=== PATIENT | male | born 1955 | race Caucasian/White ===

== ENCOUNTER 2016-12-15 08:22 | Emergency (ER) | payer MEDICAID ==
[2016-12-15] MEDS ORDERED: ASPIRIN 81 MG TABLET, CHEWABLE PO ONE (08:26)
[2016-12-15 09:19] LABS: ABSOLUTE EOSINOPHILS # (AUTO) 0.1 10^3/uL (0.0-0.6); ABSOLUTE LYMPHOCYTES (AUTO) 1.1 10^3/uL (0.5-4.7); ABSOLUTE NEUT (AUTO) 3.9 10^3/uL (1.7-8.2); WHITE BLOOD COUNT 5.7 10^3/uL (4.0-10.5)
--- NOTE | 2016-12-15 09:20 | EKG REPORT ---
SEVERITY:- ABNORMAL ECG - ATRIAL FIBRILLATION PROBABLE INFEROLATERAL INFARCT, AGE INDETERM : Confirmed by: Karishma Alcantar 15-Dec-2016 09:19:31
[2016-12-15 09:34] LABS: ABSOLUTE MONOCYTES (AUTO) 0.6 10^3/uL (0.1-1.4); BASOPHILS % (AUTO) 0.3 % (0-2); EOSINOPHILS % (AUTO) 2.6 % (0-6); HEMATOCRIT 50.6 % (37.9-51.0); HEMOGLOBIN 16.7 g/dL (13.5-17.0); HGB HCT DIFFERENCE -0.5; LYMPHOCYTES % (AUTO) 19.7 % (13-45); MEAN CORPUSCULAR HGB CONC 32.9 g/dL (32.0-36.0); MEAN CORPUSCULAR VOLUME 88 fl (80-97); MONOCYTES % (AUTO) 9.9 % (3-13); RED BLOOD COUNT 5.75 10^6/uL (4.35-5.55); RED CELL DISTRIBUTION WIDTH 14.9 % (11.5-14.0); SEGMENTED NEUTROPHILS % (AUTO) 67.5 % (42-78)
--- NOTE | 2016-12-15 10:05 | ER Document Report ---
ED General - General Chief Complaint: Palpitations Stated Complaint: HEART PROBLEMS Mode of Arrival: Ambulatory Information source: Patient Notes: 61-year-old male history of A. saran who is on bisoprolol 10mg presents with complaints of rapid heart rate. Patient notes he is unable to check it at home states it is faster intermittently. Patient denies any chest pain shortness of breath difficulty breathing when this occurs. Currently patient is asymptomatic TRAVEL OUTSIDE OF THE [place] IN LAST 30 DAYS: No - HPI Onset: Other Onset/Duration: Intermittent Quality of pain: No pain Severity: Mild Pain Level: Denies Associated symptoms: Other Exacerbated by: Walking Relieved by: Denies Similar symptoms previously: Yes Recently seen / treated by doctor: Yes - Related Data Allergies/Adverse Reactions: cefuroxime axetil [From Ceftin] Allergy (Intermediate, Verified 12/15/16 08:35) Past Medical History - Social History Smoking Status: Former Smoker Cigarette use (# per day): No Chew tobacco use (# tins/day): No Smoking Education Provided: No Frequency of alcohol use: None Drug Abuse: None Family History: Reviewed & Not Pertinent Patient has suicidal ideation: No Patient has homicidal ideation: No - Past Medical History Cardiac Medical History: Reports: Hx Atrial Fibrillation, Hx Coronary Artery Disease, Hx Hypercholesterolemia, Hx Hypertension Pulmonary Medical History: Reports: Hx Bronchitis - 90's, Hx Pneumonia Denies: Hx Tuberculosis Renal/ Medical History: Denies: Hx Peritoneal Dialysis Psychiatric Medical History: Reports: Hx Depression - gen anxiety disorder Traumatic Medical History: Reports: Hx Fractures - skull 7 y/o Past Surgical History: Reports: Hx Cardiac Surgery - 2009,09/10/16, Hx CholecystectomyComment Only: Hx Vascular Surgery - stent neck - Immunizations Hx Diphtheria, Pertussis, Tetanus Vaccination: Yes Hx Pneumococcal Vaccination: 11/11/09 Review of Systems - Review of Systems Notes: REVIEW OF SYSTEMS: CONSTITUTIONAL : Denies fever, chills, or sweats. Denies recent illness. EENT: Denies eye, ear, throat, or mouth pain or symptoms. Denies nasal or sinus congestion or discharge. Denies throat, tongue, or mouth swelling or difficulty swallowing. CARDIOVASCULAR: Admits to racing or irregular heart RESPIRATORY: Denies cough, cold, or chest congestion. Denies shortness of breath, difficulty breathing, or wheezing. GASTROINTESTINAL: Denies abdominal pain or distention. Denies nausea, vomiting , or diarrhea. Denies blood in vomitus, stools, or per rectum. Denies black, tarry stools. Denies constipation. GENITOURINARY: Denies difficulty urinating, painful urination, burning, frequency, blood in urine, or discharge. MUSCULOSKELETAL: Denies back or neck pain or stiffness. Denies joint pain or swelling. SKIN: Denies rash, lesions or sores. HEMATOLOGIC : Denies easy bruising or bleeding. LYMPHATIC: Denies swollen, enlarged glands. NEUROLOGICAL: Denies confusion or altered mental status. Denies passing out or loss of consciousness. Denies dizziness or lightheadedness. Denies headache. Denies weakness or paralysis or loss of use of either side. Denies problems with gait or speech. Denies sensory loss, numbness, or tingling. Denies seizures. PSYCHIATRIC: Denies anxiety or stress. Denies depression, suicidal ideation, or homicidal ideation. ALL OTHER SYSTEMS REVIEWED AND NEGATIVE. Dictation was performed using [employer] voice recognition software PHYSICAL EXAMINATION: GENERAL: Well-appearing, well-nourished and in no acute distress. HEAD: Atraumatic, normocephalic. EYES: Pupils equal round and reactive to light, extraocular movements intact, sclera anicteric, conjunctiva are normal. ENT: Nares patent, oropharynx clear without exudates. Moist mucous membranes. NECK: Normal range of motion, supple without lymphadenopathy LUNGS: Breath sounds clear to auscultation bilaterally and equal. No wheezes rales or rhonchi. HEART: A. fib rate in the 70s ABDOMEN: Soft, nontender, nondistended abdomen. No guarding, no rebound. No masses appreciated. Musculoskeletal: Normal range of motion, no pitting or edema. No cyanosis. NEUROLOGICAL: Cranial nerves grossly intact. Normal speech, normal gait. Normal sensory, motor exams PSYCH: Normal mood, normal affect. SKIN: Warm, Dry, normal turgor, no rashes or lesions noted. Physical Exam - Vital signs Vitals: Temp Pulse Resp BP Pulse Ox 97.2 F 56 L 20 130/81 H 98 12/15/16 08:38 12/15/16 08:38 12/15/16 08:38 12/15/16 08:38 12/15/16 08:38 Course - Re-evaluation Re-evalutation: 12/15/16 10:06 Patient's rate controlled at this time, lab work is pending, I will speak with his allergy specialist regarding his concerns however I do not expect any life- threatening issues at this time 12/15/16 10:[address] maldonado, requests coumadin vs follow up with dr hartmann on saturday, pt wishes to start coumadin and will follow After performing a Medical Screening Examination, I estimate there is LOW risk for RUPTURED ESOPHAGUS, PNEUMOTHORAX, PULMONARY EMBOLISM, ACUTE CORONARY SYNDROME, OR THORACIC AORTIC DISSECTION, thus I consider the discharge disposition reasonable. The patient and I have discussed the diagnosis and risks , and we agree with discharging home with close follow-up. We also discussed returning to the Emergency Department immediately if new or worsening symptoms occur. We have discussed the symptoms which are most concerning (e.g., bloody sputum, worsening pain or shortness of breath) that necessitate immediate return. - Vital Signs Vital signs: Temp Pulse Resp BP Pulse Ox 97.2 F 56 L 20 130/81 H 98 12/15/16 08:38 12/15/16 08:38 12/15/16 08:38 12/15/16 08:38 12/15/16 08:38 - Laboratory Result Diagrams: 12/15/16 08:53 12/15/16 09:40 Laboratory results interpreted by me: 12/15/16 08:53 RBC 5.75 H RDW 14.9 H Plt Count 79 L Discharge - Discharge Clinical Impression: Atrial fibrillation Qualifiers: Atrial fibrillation type: chronic Qualified Code(s): I48.2 - Chronic atrial fibrillation Condition: Stable Disposition: HOME, SELF-CARE Instructions: Palpitations (Irregular or Rapid Heartrate) ([facility]) Prescriptions: Warfarin Sodium [Coumadin 5 mg Tablet] 5 mg PO QHS #30 tablet Referrals: SANDIE BLANCHARD MD [Primary Care Provider] - Follow up as needed DWAYNE KENNEY MD [ACTIVE STAFF] - Follow up tomorrow
[2016-12-15 10:13] LABS: ALANINE AMINOTRANSFERASE 25 U/L (21-72); ALBUMIN 3.7 g/dL (3.5-5.0); ALKALINE PHOSPHATASE 65 U/L (38-126); ANION GAP 9 (5-19); ASPARTATE AMINO TRANSFERASE 29 U/L (17-59); BILIRUBIN,TOTAL 1.1 mg/dL (0.2-1.3); BLOOD UREA NITROGEN 12 mg/dL (7-20); CALCIUM 9.4 mg/dL (8.4-10.2); CARBON DIOXIDE 28 mmol/L (22-30); CHLORIDE 104 mmol/L (98-107); CREATINE KINASE 68 U/L (55-170); CREATININE RESULT 1.07 mg/dL (0.52-1.25); GLUCOSE 95 mg/dL (75-110); POTASSIUM 4.6 mmol/L (3.6-5.0); SODIUM 140.7 mmol/L (137-145); TOTAL PROTEIN 7.2 g/dL (6.3-8.2)
[2016-12-15 10:25] LABS: CREATINE KINASE MB 1.22 ng/mL (<4.55)
[2016-12-15 10:26] LABS: TROPONIN I < 0.012 ng/mL
[2016-12-15 11:05] VITALS: BP 119/94
== END 2016-12-15 11:05 | disposition home or self-care (01) ==
LOC: ER 08:22
DX: I48.2 Chronic atrial fibrillation (principal); I25.10 Atherosclerotic heart disease of native coronary artery without angina pectoris; I10 Essential (primary) hypertension; Z79.899 Other long term (current) drug therapy; Z88.1 Allergy status to other antibiotic agents; Z87.891 Personal history of nicotine dependence
CPT/HCPCS: 36415; 71010; 80053; 82550; 82553; 84484; 85025; 93005; 93010; 99285

== ENCOUNTER → 2016-12-21 | Outpatient (CLI) | payer MEDICAID | LOC: SP 10:39 | PROVIDERS: ATTEND Internal Medicine Cardiovascular Disease | DX: R09.89 Other specified symptoms and signs involving the circulatory and respiratory systems (principal); Z98.61 Coronary angioplasty status | CPT/HCPCS: 93880 ==

== ENCOUNTER → 2018-01-06 | Outpatient (CLI) | payer MEDICAID ==
--- NOTE | 2018-01-06 16:04 | RADIOLOGY REPORT (SQ) ---
EXAM DESCRIPTION: CAROTID DOPPLER COMPLETED DATE/TIME: 01/06/2018 10:50 am REASON FOR STUDY: STENOSIS, DIZZINESS R42 DIZZINESS AND GIDDINESS I65.23 OCCLUSION AND STENOSIS OF BILATERAL CAROTID ARTERIES COMPARISON: CT angio neck 11/06/2012 Carotid Doppler 12/21/2016 TECHNIQUE: Grayscale ultrasound, Doppler velocity and spectra, and color Doppler images acquired of the extra-cranial carotid and vertebral arteries. Images stored on PACS. LIMITATIONS: None. FINDINGS: RIGHT CAROTID CCA Velocities: Within normal limits. ICA Velocities Peak systolic 0.52 m/s. End diastolic 0.16 m/s. Proximal ICA/CCA peak systolic ratio 1.5. Patient is post right carotid stenting. Normal velocities in the wound right ICA within the stent, a nd superior to the stent LEFT CAROTID CCA Velocities: Within normal limits. ICA Velocities Peak systolic 1.9 m/s. End diastolic 0.53 m/s. Proximal ICA/CCA peak systolic ratio 5.3. There is calcific shadowing plaque at the origin of the left ICA. Immediately distal to the shadowin g plaque, velocities suggest 70 to 99% stenosis. There is turbulent flow in the left ICA. VERTEBRAL ARTERIES: Antegrade flow. Normal waveforms. SUBCLAVIAN ARTERIES: Not evaluated OTHER: No other significant finding. IMPRESSION: Patent right carotid stent without recurrent right proximal ICA stenosis Calcific plaque left carotid bifurcation with elevated peak systolic and end-diastolic velocities jus t distal to the plaque, and suggesting 70 to 99% left proximal ICA stenosis. COMMENT: Quality ID #195: Velocity criteria are extrapolated from the diameter data as defined by lanette mejia Society of Radiologists in Ultrasound Consensus Conference. Radiology 2003: 229; 340-346. TECHNICAL DOCUMENTATION: JOB ID: [id number] [employer]- All Rights Reserved Reading location - IP/workstation name: [email or web address]
== END ==
LOC: SP 09:13
PROVIDERS: ATTEND Family Medicine
DX: I65.23 Occlusion and stenosis of bilateral carotid arteries (principal); R42 Dizziness and giddiness
CPT/HCPCS: 93880

== ENCOUNTER → 2018-01-20 | Outpatient (CLI) | payer MEDICAID ==
--- NOTE | 2018-01-20 16:29 | RADIOLOGY REPORT (SQ) ---
EXAM DESCRIPTION: CTA NECK COMPLETED DATE/TIME: 01/20/2018 2:40 pm REASON FOR STUDY: I65.23 OCCLUSION AND STENOSIS OF BILATERAL CAROTID ARTERIES I65.23 OCCLUSION AND STENOSIS OF BILATERAL CAROTID ARTERIES COMPARISON: Carotid Doppler dated 01/06/2018. TECHNIQUE: Axial dynamic scanning technique with dynamic contrast enhancement through the extra-aircraft engine mechanic overhaul nial carotid and vertebral arteries. Multiplanar reconstruction. 3-D MIPS and Volume-rendered imag es acquired at the workstation and saved to PACS. Images are reviewed in soft tissue, bone, lung w indows. All CT scanners at this facility use dose modulation, iterative reconstruction, and/or weight based d osing when appropriate to reduce radiation dose to as low as reasonably achievable (ALARA). [facility]: Dose Right [facility]: CareDose [facility]: Dose Right [facility]: Teradose 4D [facility]: 5k Fans CONTRAST TYPE AND DOSE: contrast/concentration: Isovue 370.00 mg/ml; Total Contrast Delivered: 80.0 ml; Total Saline Delivered: 75.0 ml RENAL FUNCTION: Creatinine 1.2. LIMITATIONS: None. FINDINGS: AORTIC ARCH: Normal three-vessel origin. Bilateral subclavian arteries are patent. No d issection. RIGHT CAROTIDS: Patent common, internal and external carotid arteries without suggestion of significa nt stenosis or irregular plaque. Patent stent in the carotid bulb and proximal internal carotid tk ry. No dissection. RIGHT VERTEBRAL: Patent. No dissection. LEFT CAROTIDS: Patent common and external carotid arteries. Heavily calcified plaque in the carotid bulb and proximal internal carotid artery with approximately 90% luminal narrowing. No dissection. LEFT VERTEBRAL: Patent. No dissection. OTHER: No other significant finding. OTHER: 3-D reconstructions confirm findings. IMPRESSION: 1. CALCIFIED PLAQUE IN THE LEFT CAROTID BULB AND PROXIMAL LEFT INTERNAL CAROTID ARTERY WITH APPROXIMA TELY 90% STENOSIS. 2. PATENT STENT IN THE RIGHT CAROTID BULB AND PROXIMAL INTERNAL CAROTID ARTERY. COMMENT: Quality ID #195: Measurements of distal internal carotid diameter were used as the denomina tor for stenosis measurement. TECHNICAL DOCUMENTATION: JOB ID: [id number] Quality ID # 436: Final reports with documentation of one or more dose reduction techniques (e.g., Au tomated exposure control, adjustment of the mA and/or kV according to patient size, use of iterative reconstruction technique) 2010 [employer]- All Rights Reserved Reading location - IP/workstation name: [email or web address]
== END ==
LOC: RAD 14:33
PROVIDERS: ATTEND Physician Assistant Medical
DX: I65.23 Occlusion and stenosis of bilateral carotid arteries (principal)
CPT/HCPCS: 70498; 82565

== ENCOUNTER 2019-09-11 09:47 | Emergency (ER) | payer MEDICARE, MEDICAID ==
--- NOTE | 2019-09-11 10:14 | ER Document Report ---
ED Medical Screen (RME) - General Chief Complaint: Abdominal Pain Stated Complaint: ABDOMINAL PAIN Time Seen by Provider: 09/11/19 10:08 Primary Care Provider: VENKAT CASIANO PA-C [Primary Care Provider] - Follow up as needed Mode of Arrival: Ambulatory Information source: Patient Notes: 64-year-old male presents to ED for complaint of left lower quadrant abdominal p ain x3 weeks. He denies any nausea vomiting or diarrhea. He states he felt like he had a fever but his temperature was normal when he came in. Patient states he feels a little nauseous but mostly gassy. He states the pain is sharp at times and dull at times. Patient states the pain is a 1.5/5. Patient states he is a former smoker 30 years ago alcohol once a week no illicit drugs. He has a history of ITP high blood pressure high cholesterol heart disease he has a couple stents in his heart and one in his neck carotid endarterectomy on the left side right inguinal hernia repair. He states he often feels woozy and shaky and he thought he had diabetes he went to Dr. Salazar he said he does not have diabetes. I have greeted and performed a rapid initial assessment of this patient. A comprehensive ED assessment and evaluation of the patient, analysis of test results and completion of medical decision making process will be conducted by an additional ED providers. TRAVEL OUTSIDE OF THE [place] IN LAST 30 DAYS: No - Related Data Allergies/Adverse Reactions: cefuroxime axetil [From Ceftin] Allergy (Intermediate, Verified 12/15/16 08:35) Past Medical History - Past Medical History Cardiac Medical History: Reports: Hx Atrial Fibrillation, Hx Coronary Artery Disease, Hx Hypercholesterolemia, Hx Hypertension Pulmonary Medical History: Reports: Hx Bronchitis - 90's, Hx Pneumonia Denies: Hx Tuberculosis Renal/ Medical History: Denies: Hx Peritoneal Dialysis Psychiatric Medical History: Reports: Hx Depression - gen anxiety disorder Traumatic Medical History: Reports: Hx Fractures - skull 7 y/o Past Surgical History: Reports: Hx Cardiac Surgery - 2009,09/10/16, Hx CholecystectomyComment Only: Hx Vascular Surgery - stent neck - Immunizations Hx Diphtheria, Pertussis, Tetanus Vaccination: Yes Physical Exam - Vital signs Vitals: Temp Pulse Resp BP Pulse Ox 97.4 F 71 18 148/56 H 99 09/11/19 09:51 09/11/19 09:51 09/11/19 09:51 09/11/19 09:51 09/11/19 09:51 Course - Vital Signs Vital signs: Temp Pulse Resp BP Pulse Ox 97.4 F 71 18 148/56 H 99 09/11/19 09:51 09/11/19 09:51 09/11/19 09:51 09/11/19 09:51 09/11/19 09:51 Doctor's Discharge - Discharge Referrals: VENKAT CASIANO PA-C [Primary Care Provider] - Follow up as needed
[2019-09-11] MEDS ORDERED: ONDANSETRON 4 MG TAB.RAPDIS PO ONE (10:15)
[2019-09-11 10:49] LABS: APPEARANCE,URINE CLEAR; BILIRUBIN,URINE NEGATIVE (NEGATIVE); COLOR,URINE YELLOW; GLUCOSE, URINE NEGATIVE (NEGATIVE); KETONES,URINE NEGATIVE (NEGATIVE); PROTEIN,URINE NEGATIVE (NEGATIVE); UROBILINOGEN,URINE NEGATIVE mg/dL (<2.0)
[2019-09-11 10:56] LABS: ABSOLUTE EOSINOPHILS # (AUTO) 0.1 10^3/uL (0.0-0.6); ABSOLUTE MONOCYTES (AUTO) 0.5 10^3/uL (0.1-1.4); ABSOLUTE NEUT (AUTO) 4.8 10^3/uL (1.7-8.2); BASOPHILS % (AUTO) 0.4 % (0-2); HEMATOCRIT 45.3 % (37.9-51.0); HEMOGLOBIN 15.3 g/dL (13.5-17.0); LYMPHOCYTES % (AUTO) 15.7 % (13-45); MEAN CORPUSCULAR HEMOGLOBIN 31.2 pg (27.0-33.4); MEAN CORPUSCULAR HGB CONC 33.8 g/dL (32.0-36.0); MEAN CORPUSCULAR VOLUME 93 fl (80-97); MONOCYTES % (AUTO) 7.6 % (3-13); RED CELL DISTRIBUTION WIDTH 12.9 % (11.5-14.0); SEGMENTED NEUTROPHILS % (AUTO) 74.3 % (42-78); TOTAL CELLS COUNTED % (AUTO) 100 %; WHITE BLOOD COUNT 6.5 10^3/uL (4.0-10.5)
[2019-09-11 11:08] LABS: ALBUMIN 4.4 g/dL (3.5-5.0); ALKALINE PHOSPHATASE 61 U/L (38-126); ANION GAP 8 (5-19); ASPARTATE AMINO TRANSFERASE 25 U/L (17-59); BILIRUBIN,DIRECT 0.1 mg/dL (0.0-0.4); BILIRUBIN,TOTAL 0.9 mg/dL (0.2-1.3); BLOOD UREA NITROGEN 18 mg/dL (7-20); CALCIUM 9.6 mg/dL (8.4-10.2); CARBON DIOXIDE 29 mmol/L (22-30); CHLORIDE 102 mmol/L (98-107); GLUCOSE 96 mg/dL (75-110); POTASSIUM 4.4 mmol/L (3.6-5.0); TOTAL PROTEIN 7.4 g/dL (6.3-8.2)
[2019-09-11 11:16] LABS: PLATELET COUNT 81 10^3/uL (150-450)
[2019-09-11] MEDS ORDERED: NORMAL SALINE 1000 ML 1,000 ML IV ONE (12:26)
--- NOTE | 2019-09-11 12:30 | ER Document Report ---
ED General - General Chief Complaint: Abdominal Pain Stated Complaint: ABDOMINAL PAIN Time Seen by Provider: 09/11/19 10:08 Primary Care Provider: VENKAT CASIANO PA-C [NO LOCAL MD] - Follow up in 3-5 days Mode of Arrival: Ambulatory Notes: Patient is a 64-year-old male who presents emergency department with a chief complaint of left lower abdominal pain. He has had his symptoms for the past 3 weeks. Patient states that he also had felt shaky prior to then. He had diabetes ruled out by his primary care provider. TRAVEL OUTSIDE OF THE [place] IN LAST 30 DAYS: No - Related Data Allergies/Adverse Reactions: cefuroxime axetil [From Ceftin] Allergy (Intermediate, Verified 12/15/16 08:35) Past Medical History - General Information source: Patient - Social History Smoking Status: Former Smoker Chew tobacco use (# tins/day): No Frequency of alcohol use: Occasional Drug Abuse: None Family History: Reviewed & Not Pertinent Patient has suicidal ideation: No Patient has homicidal ideation: No - Past Medical History Cardiac Medical History: Reports: Hx Atrial Fibrillation, Hx Coronary Artery Disease, Hx Hypercholesterolemia, Hx Hypertension Pulmonary Medical History: Reports: Hx Bronchitis - 90's, Hx Pneumonia Denies: Hx Tuberculosis Renal/ Medical History: Denies: Hx Peritoneal Dialysis Psychiatric Medical History: Reports: Hx Depression - gen anxiety disorder Traumatic Medical History: Reports: Hx Fractures - skull 7 y/o Past Surgical History: Reports: Hx Cardiac Surgery - 2009,09/10/16, Hx CholecystectomyComment Only: Hx Vascular Surgery - stent neck - Immunizations Hx Diphtheria, Pertussis, Tetanus Vaccination: Yes Hx Pneumococcal Vaccination: 11/11/09 Review of Systems - Review of Systems Notes: REVIEW OF SYSTEMS: CONSTITUTIONAL : Denies recent illness. Denies recent unintentional weight loss. Denies fever, chills, or sweats. EENT: Denies eye, ear, throat, or mouth pain, discharge, or symptoms. Denies nasal or sinus congestion. CARDIOVASCULAR: Denies chest pain. RESPIRATORY: Denies shortness of breath, cough, congestion, difficulty breathing, or wheezing. GASTROINTESTINAL: See HPI. GENITOURINARY: Denies difficulty urinating, burning, blood in urine, urgency or frequency. MUSCULOSKELETAL: Denies neck and back pain. Denies joint pain or swelling. SKIN: Denies rash, itchiness, or lesions HEMATOLOGIC : Denies easy bruising or bleeding. LYMPHATIC: Denies swollen, painful, enlarged glands. NEUROLOGICAL: Denies no numbness or tingling denies weakness. Denies headache. Denies altered mental status. Denies alteration in speech. PSYCHIATRIC: Denies stress, anxiety, alteration in sleep patterns, or depression. All other systems reviewed and negative. Physical Exam - Vital signs Vitals: Temp Pulse Resp BP Pulse Ox 97.4 F 71 18 148/56 H 99 09/11/19 09:51 09/11/19 09:51 09/11/19 09:51 09/11/19 09:51 09/11/19 09:51 - Notes Notes: PHYSICAL EXAMINATION: GENERAL: Appears well, healthy, well-nourished, no acute distress. HEAD: Normocephalic, atraumatic. EYES: PERRL, conjunctiva normal, all extraocular movements intact, sclera nonicteric ENT: Moist mucous membranes. NECK: Supple, no noticeable swelling, redness, rash. Normal range of motion. LUNGS: Equal breath sounds bilaterally and clear to auscultation. No wheezes rales or rhonchi. CARDIOVASCULAR: S1-S2, regular rate, regular rhythm. Radial pulses 2+, normal. ABDOMEN: Normoactive bowel sounds. Soft, tender left lower quadrant with guarding noted, no rebound tenderness, and no masses palpated. EXTREMITIES: Normal strength and range of motion, no pitting or edema. No cyanosis. NEUROLOGICAL: Moves all extremities upon command. Strength 5/5 in all extremities. PSYCH: Normal mood, normal affect. SKIN: Warm, dry. No rash, lesions, ulcerations noted. Normal skin turgor. Course - Re-evaluation Re-evalutation: 09/11/19 12:30 Patient CBC and chemistries ordered in triage are negative for any acute abnormality. Patient has tenderness to left lower quadrant with some guarding. He will be sent for CT of the abdomen pelvis to rule out diverticulitis. 09/11/19 13:[address] of the abdomen pelvis is negative for any acute findings. Patient will be started on a close mean to help with his abdominal pain. I have advised him to follow-up with his primary care provider. He is in agreement with this plan. Follow-up precautions were given. Verbal discharge instructions were given to the patient. They verbalized understanding. They are stable for discharge. - Vital Signs Vital signs: Temp Pulse Resp BP Pulse Ox 97.5 F 69 14 141/74 H 100 09/11/19 13:47 09/11/19 13:47 09/11/19 13:47 09/11/19 13:47 09/11/19 13:47 - Laboratory Result Diagrams: 09/11/19 10:17 09/11/19 10:17 Laboratory results interpreted by me: 09/11/19 10:17 Plt Count 81 L Discharge - Discharge Clinical Impression: Left lower quadrant abdominal pain Condition: Stable Disposition: HOME, SELF-CARE Additional Instructions: You are seen today in the emergency department for abdominal pain. Your CT scan and labs are all normal. Please follow-up with your primary care provider in regards to this visit. You are being started on Bentyl, medication for abdominal pain. If you have worsening symptoms, please return to the emergency department. Prescriptions: Dicyclomine HCl [Bentyl 20 mg Tablet] 20 mg PO QIDP PRN #20 tablet PRN Reason: Referrals: VENKAT CASIANO PA-C [NO LOCAL MD] - Follow up in 3-5 days
--- NOTE | 2019-09-11 13:18 | RADIOLOGY REPORT (SQ) ---
EXAM DESCRIPTION: CT ABD/PELVIS WITH IV ONLY COMPLETED DATE/TIME: 09/11/2019 12:59 pm REASON FOR STUDY: LLQ abd pain COMPARISON: None. TECHNIQUE: CT scan of the abdomen and pelvis performed using helical scanning technique with dynamic intravenous contrast injection. No oral contrast. Images reviewed with lung, soft tissue, and bone windows. Reconstructed coronal and sagittal MPR images reviewed. Delayed images for evaluation of the urinary system also acquired. All images stored on PACS. All CT scanners at this facility use dose modulation, iterative reconstruction, and/or weight based d osing when appropriate to reduce radiation dose to as low as reasonably achievable (ALARA). [facility]: Dose Right [facility]: CareDose [facility]: Dose Right [facility]: Teradose 4D [facility]: Labs on the Go CONTRAST TYPE AND DOSE: contrast/concentration: Isovue mg/ml; Total Contrast Delivered: 100.0 ml; T otal Saline Delivered: 72.0 ml RENAL FUNCTION: GFR > 60. RADIATION DOSE: CT Rad equipment meets quality standard of care and radiation dose reduction techniq ues were employed. CTDIvol: 16.7 - 20.0 mGy. DLP: 1918 mGy-cm.. LIMITATIONS: None. FINDINGS: LOWER CHEST: No significant findings. No nodules or infiltrates. LIVER: Normal size. No masses. No dilated ducts. SPLEEN: Normal size. No focal lesions. PANCREAS: No masses. No significant calcifications. No adjacent inflammation or peripancreatic fluid collections. Pancreatic duct not dilated. GALLBLADDER: Surgically absent. ADRENAL GLANDS: No significant masses or asymmetry. RIGHT KIDNEY AND URETER: No solid masses. No significant calcifications. No hydronephrosis or hyd roureter. LEFT KIDNEY AND URETER: No solid masses. No significant calcifications. No hydronephrosis or hydr oureter. AORTA AND VESSELS: Diffuse vascular calcifications. No aneurysm. RETROPERITONEUM: No retroperitoneal adenopathy, hemorrhage or masses. BOWEL AND PERITONEAL CAVITY: No masses or inflammatory changes. No free fluid or peritoneal masses. APPENDIX: Normal. PELVIS: No mass. No free fluid. Normal bladder. ABDOMINAL WALL: Small fat containing umbilical hernia. BONES: Nothing acute. OTHER: No other significant finding. IMPRESSION: No acute findings. No explanation for left lower quadrant pain. TECHNICAL DOCUMENTATION: JOB ID: [id number] Quality ID # [id number]: Final reports with documentation of one or more dose reduction techniques (e.g., Au tomated exposure control, adjustment of the mA and/or kV according to patient size, use of iterative reconstruction technique) 2010 [employer]- All Rights Reserved Reading location - IP/workstation name: [email or web address]
[2019-09-11] MEDS ORDERED: DICYCLOMINE HCL 20 MG TABLET PO ONE (13:30)
[2019-09-11 13:50] VITALS: BP 141/74
== END 2019-09-11 13:54 | disposition home or self-care (01) ==
LOC: ER 09:47
DX: R10.32 Left lower quadrant pain (principal); R10.814 Left lower quadrant abdominal tenderness; I25.10 Atherosclerotic heart disease of native coronary artery without angina pectoris; I10 Essential (primary) hypertension; Z87.891 Personal history of nicotine dependence; Z88.1 Allergy status to other antibiotic agents
CPT/HCPCS: 99284; 96360; 36415; 83690; 85025; 80053; 81001; 74177; A9270 ×2; J7030; J3490; S0119

== ENCOUNTER 2019-10-27 08:11 | Emergency (ER) | payer MEDICARE, MEDICAID ==
--- NOTE | 2019-10-27 10:06 | ER Document Report ---
ED Medical Screen (RME) - General Chief Complaint: Abdominal Pain Stated Complaint: CONSTIPATION Time Seen by Provider: 10/27/19 10:00 Primary Care Provider: SANDIE BLANCHARD MD [Primary Care Provider] - Follow up as needed Notes: 64-year-old male with ITP on Promacta presents to the emergency department for constipation for the past 2 to 3 weeks. Patient states that he has to do an enema in order to have a bowel movement. Patient went 4 days without and last BM was yesterday with an enema. No fevers or chills, no weakness, no dizziness or lightheadedness. No hematochezia, patient is passing gas. Exam: Well-appearing in no acute distress, abdominal exam deferred in triage but bowel sounds were present, lungs are clear to auscultation all williamson, diastolic murmur heard. I have greeted and performed a rapid initial assessment of this patient. A comprehensive ED assessment and evaluation of the patient, analysis of test results and completion of medical decision making process will be conducted by an additional ED providers. TRAVEL OUTSIDE OF THE [place] IN LAST 30 DAYS: No - Related Data Allergies/Adverse Reactions: cefuroxime axetil [From Ceftin] Allergy (Intermediate, Verified 10/27/19 08:41) Past Medical History - Social History Chew tobacco use (# tins/day): No Frequency of alcohol use: None Drug Abuse: None - Past Medical History Cardiac Medical History: Reports: Hx Atrial Fibrillation, Hx Coronary Artery Disease, Hx Hypercholesterolemia, Hx Hypertension Pulmonary Medical History: Reports: Hx Bronchitis - 90's, Hx Pneumonia Denies: Hx Tuberculosis Renal/ Medical History: Denies: Hx Peritoneal Dialysis Psychiatric Medical History: Reports: Hx Depression - gen anxiety disorder Traumatic Medical History: Reports: Hx Fractures - skull 7 y/o Past Surgical History: Reports: Hx Cardiac Surgery - 2009,09/10/16, Hx CholecystectomyComment Only: Hx Vascular Surgery - stent neck - Immunizations Hx Diphtheria, Pertussis, Tetanus Vaccination: Yes Physical Exam - Vital signs Vitals: Temp Pulse Resp BP Pulse Ox 98.7 F 81 16 130/69 H 97 10/27/19 08:15 10/27/19 08:15 10/27/19 08:15 10/27/19 08:15 10/27/19 08:15 Course - Vital Signs Vital signs: Temp Pulse Resp BP Pulse Ox 98.7 F 81 16 130/69 H 97 10/27/19 08:41 10/27/19 08:15 10/27/19 08:41 10/27/19 08:15 10/27/19 08:41 Doctor's Discharge - Discharge Referrals: SANDIE BLANCHARD MD [Primary Care Provider] - Follow up as needed
--- NOTE | 2019-10-27 10:35 | RADIOLOGY REPORT (SQ) ---
EXAM DESCRIPTION: KUB/ABDOMEN (SINGLE VIEW) COMPLETED DATE/TIME: 10/27/2019 10:21 am REASON FOR STUDY: constipation COMPARISON: None. NUMBER OF VIEWS: One view. TECHNIQUE: Supine radiographic image of the abdomen acquired. LIMITATIONS: None. FINDINGS: BOWEL GAS PATTERN: Normal bowel gas pattern. No dilated loops. CALCIFICATIONS: No suspicious calcifications. SOFT TISSUES: No gross mass or suggestion of organomegaly. HARDWARE: None in the abdomen. BONES: Sclerotic lesion in the left ilium presumably bone island. Any history of cancer? OTHER: No other significant finding. IMPRESSION: Sclerotic lesion in the left ilium which is demonstrated on prior CT is well. This most likely represents bone island. Does the patient have any history of neoplasm? TECHNICAL DOCUMENTATION: JOB ID: [id number] [employer]- All Rights Reserved Reading location - IP/workstation name: [email or web address]
--- NOTE | 2019-10-27 11:13 | ER Document Report ---
ED GI/ - General Chief Complaint: Abdominal Pain Stated Complaint: CONSTIPATION Time Seen by Provider: 10/27/19 10:00 Primary Care Provider: SANDIE BLANCHARD MD [Primary Care Provider] - Follow up as needed Notes: Mr. Gutierrez is a 64 yo m w/ PMH ITP previously on Promacta recently switched to prednisone 80 daily, A. fib on Eliquis, hypertension and hyperlipidemia presenting to the ED for constipation. Patient states that he has been quite constipated over the past week. Approximately 3 or 4 days ago, he uses an enema which allowed him to have a bowel movement. He was able to go on his own independently yesterday without much difficulty. He does state drinking 5-6 water bottles daily. He denies abdominal pain, nausea vomiting or diarrhea. Dates that he is never had this issue before. He is quite worried as he had an endoscopy which was normal about 1 to 2 weeks ago however he is scheduled for colonoscopy this upcoming . He is concerned that the prep will not actually make him go and that he will still have stool in his bowels and therefore be unable to undergo the colonoscopy and have to cancel it. Patient denies using any stool softeners or MiraLAX. TRAVEL OUTSIDE OF THE [place] IN LAST 30 DAYS: No - Related Data Allergies/Adverse Reactions: cefuroxime axetil [From Ceftin] Allergy (Intermediate, Verified 10/27/19 08:41) Past Medical History - Social History Smoking Status: Former Smoker Chew tobacco use (# tins/day): No Frequency of alcohol use: None Drug Abuse: None Family History: Reviewed & Not Pertinent Patient has suicidal ideation: No Patient has homicidal ideation: No - Past Medical History Cardiac Medical History: Reports: Hx Atrial Fibrillation, Hx Coronary Artery Disease, Hx Hypercholesterolemia, Hx Hypertension Pulmonary Medical History: Reports: Hx Bronchitis - 90's, Hx Pneumonia Denies: Hx Tuberculosis Renal/ Medical History: Denies: Hx Peritoneal Dialysis Psychiatric Medical History: Reports: Hx Depression - gen anxiety disorder Traumatic Medical History: Reports: Hx Fractures - skull 7 y/o Past Surgical History: Reports: Hx Cardiac Surgery - 2009,09/10/16, Hx CholecystectomyComment Only: Hx Vascular Surgery - stent neck - Immunizations Hx Diphtheria, Pertussis, Tetanus Vaccination: Yes Hx Pneumococcal Vaccination: 11/11/09 Review of Systems - Review of Systems Constitutional: See HPI EENT: No symptoms reported Cardiovascular: No symptoms reported Respiratory: No symptoms reported Gastrointestinal: No symptoms reported Genitourinary: No symptoms reported Male Genitourinary: No symptoms reported Musculoskeletal: No symptoms reported Skin: No symptoms reported Hematologic/Lymphatic: No symptoms reported Neurological/Psychological: No symptoms reported Physical Exam - Vital signs Vitals: Temp Pulse Resp BP Pulse Ox 98.7 F 81 16 130/69 H 97 10/27/19 08:15 10/27/19 08:15 10/27/19 08:15 10/27/19 08:15 10/27/19 08:15 Interpretation: Normal - General General appearance: Appears well, Alert - HEENT Head: Normocephalic, Atraumatic Eyes: Normal Pupils: PERRL - Respiratory Respiratory status: No respiratory distress Chest status: Nontender Breath sounds: Normal Chest palpation: Normal - Cardiovascular Rhythm: Regular Heart sounds: Normal auscultation Murmur: No - Abdominal Inspection: Normal Distension: No distension. No: Distended Bowel sounds: Normal Tenderness: Nontender. No: Tender, McBurney's point, Nieto's sign, Guarding, Rebound Organomegaly: No organomegaly - Back Back: Normal, Nontender - Extremities General upper extremity: Normal inspection, Nontender, Normal color, Normal ROM, Normal temperature General lower extremity: Normal inspection, Nontender, Normal color, Normal ROM, Normal temperature, Normal weight bearing. No: Stevie's sign - Neurological Neuro grossly intact: Yes Cognition: Normal Orientation: AAOx4 Jet Coma Scale Eye Opening: Spontaneous Ilion Coma Scale Verbal: Oriented Ilion Coma Scale Motor: Obeys Commands Ilion Coma Scale Total: 15 Speech: Normal Motor strength normal: LUE, RUE, LLE, RLE Sensory: Normal - Psychological Associated symptoms: Normal affect, Normal mood - Skin Skin Temperature: Warm Skin Moisture: Dry Skin Color: Normal Course - Re-evaluation Re-evalutation: Patient is generally well-appearing and nontoxic. Initial vitals within normal limits. Differential diagnosis includes constipation, dehydration, obstipation, SBO (unlikely) 10/27/19 11:01 Abdomen is soft without any rebound or guarding. No nausea or vomiting to suggest bowel obstruction. Patient still passing gas without any issues. And he did have a bowel movement yesterday. Patient had a KUB from triage and it sh ows evidence of a sclerotic region in the left ilium which is demonstrated on previous CT. Previous CT also shows diffuse vascular calcifications. No indication for blood work as the patient does not appear clinically dehydrated. Patient has an upcoming appointment with GI and colonoscopy. His primary concern is that the colon prep will not actually fully evacuate his bowels and therefore he will have to cancel the colonoscopy appointment. Patient will be provided with MiraLAX and senna which she was instructed to start using today. He was also instructed to use it in addition to the bowel prep tomorrow which he will be starting after 4 PM. Patient given return precautions. - Vital Signs Vital signs: Temp Pulse Resp BP Pulse Ox 98.7 F 81 16 130/69 H 97 10/27/19 08:41 10/27/19 08:15 10/27/19 08:41 10/27/19 08:15 10/27/19 08:41 Discharge - Discharge Clinical Impression: Constipation Qualifiers: Constipation type: unspecified constipation type Qualified Code(s): K59.00 - Constipation, unspecified Condition: Good Disposition: HOME, SELF-CARE Instructions: Constipation ([facility]) Additional Instructions: I would recommend that you use the MiraLAX twice a day for the next few days. I would also recommend the use the senna Colace once daily. You can continue using this throughout even after you have a colonoscopy done for regular bowel movements. Prescriptions: Polyethylene Glycol 3350 [Miralax] 1 cap PO BID #527 powder Sennosides/Docusate 8.6-50 mg [Senna Plus Tablet] 1 tab PO DAILY #30 tablet Referrals: SANDIE BLANCHARD MD [Primary Care Provider] - Follow up as needed
[2019-10-27 11:41] VITALS: BP 129/78
== END 2019-10-27 11:42 | disposition home or self-care (01) ==
LOC: ER 08:11
DX: K59.00 Constipation, unspecified (principal); R10.9 Unspecified abdominal pain; I48.91 Unspecified atrial fibrillation; I10 Essential (primary) hypertension; E78.00 Pure hypercholesterolemia, unspecified; Z79.01 Long term (current) use of anticoagulants
CPT/HCPCS: 74018; 99283

== ENCOUNTER 2019-11-14 07:25 | Inpatient (IN) | payer MEDICARE, MEDICAID ==
[2019-11-14 08:52] LABS: ABSOLUTE MONOCYTES (AUTO) 0.4 10^3/uL (0.1-1.4); ABSOLUTE NEUT (AUTO) 5.1 10^3/uL (1.7-8.2); BASOPHILS % (AUTO) 0.1 % (0-2); EOSINOPHILS % (AUTO) 0.1 % (0-6); HEMATOCRIT 46.2 % (37.9-51.0); HEMOGLOBIN 15.8 g/dL (13.5-17.0); MEAN CORPUSCULAR HEMOGLOBIN 30.9 pg (27.0-33.4); MEAN CORPUSCULAR HGB CONC 34.2 g/dL (32.0-36.0); MEAN CORPUSCULAR VOLUME 91 fl (80-97); MONOCYTES % (AUTO) 5.2 % (3-13); PLATELET COUNT 105 10^3/uL (150-450); RED CELL DISTRIBUTION WIDTH 13.4 % (11.5-14.0); SEGMENTED NEUTROPHILS % (AUTO) 67.6 % (42-78); TOTAL CELLS COUNTED % (AUTO) 100 %; WHITE BLOOD COUNT 7.5 10^3/uL (4.0-10.5)
[2019-11-14 08:53] LABS: INTERNATIONAL RATION (INR) 0.97; PROTHROMBIN TIME 12.9 SEC (11.4-15.4)
[2019-11-14 08:54] LABS: PARTIAL THROMBOPLASTIN TIME 24.5 SEC (23.5-35.8)
[2019-11-14 09:01] LABS: ALBUMIN 3.8 g/dL (3.5-5.0); ALKALINE PHOSPHATASE 48 U/L (38-126); ANION GAP 10 (5-19); ASPARTATE AMINO TRANSFERASE 34 U/L (17-59); BILIRUBIN,DIRECT 0.3 mg/dL (0.0-0.4); BILIRUBIN,TOTAL 1.2 mg/dL (0.2-1.3); BLOOD UREA NITROGEN 14 mg/dL (7-20); CALCIUM 9.4 mg/dL (8.4-10.2); CARBON DIOXIDE 28 mmol/L (22-30); CHLORIDE 98 mmol/L (98-107); GLUCOSE 98 mg/dL (75-110); TOTAL PROTEIN 6.5 g/dL (6.3-8.2)
[2019-11-14] MEDS ORDERED: NORMAL SALINE 1000 ML 1,000 ML IV ONE (12:57)
[2019-11-14] MEDS ORDERED: PANTOPRAZOLE SODIUM 40 MG VIAL IV ONE (13:26)
[2019-11-14] MEDS ORDERED: PANTOPRAZOLE SODIUM 40 MG VIAL IV PRN (13:32)
--- NOTE | 2019-11-14 14:39 | PDOC H&P ---
History of Present Illness Admission Date/PCP: SANDIE BLANCHARD MD Patient complains of: Hematochezia History of Present Illness: MAGGIE LUCIA is a 64 year old male with history of ITP, hypertension, CAD, carotid stenosis status post endarterectomy, atrial fibrillation on Eliquis, who presents to the hospital with complaints of hematochezia which started last night. Today patient has had 4 episodes of hematochezia. He had an episode at 4 AM and 6 AM prompting him to call the EMS. Patient notes dark red blood being mixed with stool in the bowl. Endorses weakness for the past 2 days. Endorses mild abdominal pain. Denies any nausea or vomiting. Denies any hematemesis. Denies melena. On arrival of EMS, his blood pressure was noted to be 98/67 with a heart rate of 123. Patient received 1 L of lactated Ringer's in the field with improvement of his blood pressure and heart rate. Of note, patient recently had upper and lower endoscopies done on 11/[address] Hopkins in his office which showed gastritis with duodenitis as well as polyps in the colon and hemorrhoids. Uncertain if polypectomy was done. Patient denies any bloody stools prior to the colonoscopy. ER contacted Dr. Hopkins who would like patient to be admitted for monitoring. Past Medical History Cardiac Medical History: Reports: Atrial Fibrillation, Coronary Artery Disease, Hyperlipidema, Hypertension Pulmonary Medical History: Reports: Bronchitis, Pneumonia Denies: Tuberculosis Psychiatric Medical History: Reports: Depression - gen anxiety disorder Hematology: Denies: Anemia Past Surgical History Past Surgical History: Reports: Cholecystectomy, Vascular Surgery - stent neck Social History Smoking Status: Former Smoker Frequency of Alcohol Use: Rare Hx Recreational Drug Use: No Hx Prescription Drug Abuse: No - Advance Directive Resuscitation Status: Full Code Family History Family History: Hypertension Parental Family History Reviewed: Yes Children Family History Reviewed: NA Sibling(s) Family History Reviewed.: NA Medication/Allergy Allergies/Adverse Reactions: cefuroxime axetil [From Ceftin] Allergy (Intermediate, Verified 10/27/19 08:41) Review of Systems Constitutional: PRESENT: weakness. ABSENT: chills Eyes: ABSENT: visual disturbances Nose, Mouth, and Throat: ABSENT: headache(s) Cardiovascular: ABSENT: chest pain Respiratory: ABSENT: dyspnea Gastrointestinal: PRESENT: abdominal pain, hematochezia. ABSENT: melena, vomiting Genitourinary: ABSENT: dysuria Musculoskeletal: PRESENT: other - lower extremity swelling Integumentary: ABSENT: diaphoresis Neurological: ABSENT: dizziness Psychiatric: ABSENT: anxiety Hematologic/Lymphatic: ABSENT: easy bruising Physical Exam Vital Signs: Temp Pulse Resp BP Pulse Ox 98.4 F 83 12 135/74 H 100 11/14/19 11:00 11/14/19 14:00 11/14/19 12:01 11/14/19 14:00 11/14/19 12:00 Intake & Output 11/13/19 11/14/19 11/15/19 06:59 06:59 06:59 Weight 102.5 kg General appearance: PRESENT: no acute distress, cooperative Neck exam: ABSENT: JVD Respiratory exam: PRESENT: clear to auscultation lucia, symmetrical, unlabored. ABSENT: tachypnea, wheezes Cardiovascular exam: PRESENT: RRR, +S1, +S2. ABSENT: tachycardia GI/Abdominal exam: PRESENT: normal bowel sounds, soft, tenderness - Mild to minimal in lower quadrant. ABSENT: distended, firm, guarding, rebound, rigid Rectal exam: PRESENT: deferred - Bloody stool visualized already in the ER Neurological exam: PRESENT: alert, awake, oriented to person, oriented to place, oriented to time, oriented to situation Results Laboratory Results: 11/14/19 07:05 11/14/19 07:05 11/14/19 11/14/19 11/14/19 07:05 07:05 08:45 WBC 7.5 RBC 5.10 Hgb 15.8 Hct 46.2 MCV 91 MCH 30.9 MCHC 34.2 RDW 13.4 Plt Count 105 L Seg Neutrophils % 67.6 Sodium 135.5 L Potassium 4.0 Chloride 98 Carbon Dioxide 28 Anion Gap 10 BUN 14 Creatinine 1.07 Est GFR ( Amer) > 60 Glucose 98 Calcium 9.4 Total Bilirubin 1.2 AST 34 Alkaline Phosphatase 48 Total Protein 6.5 Albumin 3.8 Blood Type Cancelled Antibody Screen Cancelled 11/14/19 09:39 WBC RBC Hgb Hct MCV MCH MCHC RDW Plt Count Seg Neutrophils % Sodium Potassium Chloride Carbon Dioxide Anion Gap BUN Creatinine Est GFR ( Amer) Glucose Calcium Total Bilirubin AST Alkaline Phosphatase Total Protein Albumin Blood Type O POSITIVE Antibody Screen NEGATIVE Assessment and Plan - Diagnosis (1) Lower GI bleed Is this a current diagnosis for this admission?: Yes Plan: Patient states that this is new since colonoscopy on 11/10/2019 Upper and lower endoscopy on 11/10/2019 showed duodenitis and gastritis, hemorrhoids and ascending colonic polyp. Hemoglobin at 15 We will check another hemoglobin later today and in the morning Typed and screened Admit to telemetry given multiple episodes of hematochezia today with orthostatic hypotension Dr. Hopkins consulted by the ER (2) Orthostatic hypotension Is this a current diagnosis for this admission?: Yes Plan: Orthostatic vital signs are positive IV fluids and trend CBC (3) Chronic atrial fibrillation Is this a current diagnosis for this admission?: Yes Plan: Hold Eliquis for now (4) History of coronary artery disease Is this a current diagnosis for this admission?: Yes Plan: Continue antiplatelets (5) Chronic ITP (idiopathic thrombocytopenia) Is this a current diagnosis for this admission?: Yes Plan: Patient reports being on steroids for this. (6) H. pylori duodenitis Is this a current diagnosis for this admission?: Yes Plan: Patient diagnosed with this in the outpatient setting I will continue treatment regimen with antibiotics and PPI - Time Time Spent with patient: 35 or more minutes
[2019-11-14 14:48] LABS: HEMATOCRIT 42.8 % (37.9-51.0); HEMOGLOBIN 14.6 g/dL (13.5-17.0); MEAN CORPUSCULAR HEMOGLOBIN 30.8 pg (27.0-33.4); MEAN CORPUSCULAR VOLUME 90 fl (80-97); RED BLOOD COUNT 4.73 10^6/uL (4.35-5.55); RED CELL DISTRIBUTION WIDTH 13.3 % (11.5-14.0); WHITE BLOOD COUNT 6.9 10^3/uL (4.0-10.5)
[2019-11-14 15:28] LABS: PLATELET COUNT 81 10^3/uL (150-450)
[2019-11-14] MEDS: PANTOPRAZOLE SODIUM 40 MG VIAL IV SCH (18:18)
[2019-11-14] MEDS: BUSPIRONE HCL 10 MG TABLET PO SCH (18:18)
[2019-11-14] MEDS: NORMAL SALINE 1000 ML 1,000 ML IV PRN (18:19)
--- NOTE | 2019-11-14 18:44 | ER Document Report ---
Entered by SANDY MCLAUGHLIN SCRIBE 11/14/19 1324 Acting as scribe for:RADU CAMERON DO ED General - General Chief Complaint: Rectal Bleeding Stated Complaint: GENERAL WEAKNESS Time Seen by Provider: 11/14/19 12:06 Information source: Patient Notes: This 64-year-old male patient presents to the emergency department today with complaints of rectal bleeding. Patient had a colonoscopy and endoscopy by Dr. Hpokins on November 10 and he noticed rectal bleeding yesterday. Patient is on Eliquis. Patient was told that he had an H. pylori infection after the procedure. TRAVEL OUTSIDE OF THE [place] IN LAST 30 DAYS: No - Related Data Allergies/Adverse Reactions: cefuroxime axetil [From Ceftin] Allergy (Intermediate, Verified 10/27/19 08:41) Home Medications: Omeprazole, Losartan, Prednisone, Amoxicillin, Aspirin, Metronidazole, Atorvastatin, Buspirone, Finasteride, Alfuzosin, Eliquis Past Medical History - General Information source: Patient, FORMERLY [facility], 1928–1983 Records - Social History Smoking Status: Former Smoker Cigarette use (# per day): No Frequency of alcohol use: Occasional Drug Abuse: None Family History: Reviewed & Not Pertinent Patient has suicidal ideation: No Patient has homicidal ideation: No - Past Medical History Cardiac Medical History: Reports: Hx Atrial Fibrillation, Hx Coronary Artery Disease, Hx Hypercholesterolemia, Hx Hypertension Pulmonary Medical History: Reports: Hx Bronchitis, Hx Pneumonia Psychiatric Medical History: Reports: Hx Depression - gen anxiety disorder Traumatic Medical History: Reports: Hx Fractures - skull 7 y/o Past Surgical History: Reports: Hx Cardiac Surgery - 2009,09/10/16, Hx Cholecystectomy, Hx Vascular Surgery - stent neck - Immunizations Hx Diphtheria, Pertussis, Tetanus Vaccination: Yes Hx Pneumococcal Vaccination: 11/11/09 Review of Systems - Review of Systems Constitutional: No symptoms reported EENT: No symptoms reported Cardiovascular: No symptoms reported Respiratory: No symptoms reported Gastrointestinal: See HPI, Rectal bleeding Genitourinary: No symptoms reported Male Genitourinary: No symptoms reported Musculoskeletal: No symptoms reported Skin: No symptoms reported Hematologic/Lymphatic: No symptoms reported Neurological/Psychological: No symptoms reported -: Yes All other systems reviewed and negative Physical Exam - Vital signs Vitals: Resp Pulse Ox 17 100 11/14/19 07:39 11/14/19 07:39 Interpretation: Normal - General General appearance: Appears well, Alert - HEENT Head: Normocephalic, Atraumatic Eyes: Normal Pupils: PERRL - Respiratory Respiratory status: No respiratory distress Chest status: Nontender Breath sounds: Normal Chest palpation: Normal - Cardiovascular Rhythm: Regular Heart sounds: Normal auscultation Murmur: No - Abdominal Inspection: Normal Distension: No distension Bowel sounds: Normal Tenderness: Nontender Organomegaly: No organomegaly - Rectal Tenderness: No Stool: Heme positive, Bloody - Back Back: Normal, Nontender - Extremities General upper extremity: Normal inspection, Nontender, Normal color, Normal ROM, Normal temperature General lower extremity: Normal inspection, Nontender, Normal color, Normal ROM, Normal temperature, Normal weight bearing. No: Stevie's sign - Neurological Neuro grossly intact: Yes Cognition: Normal Orientation: AAOx4 Jet Coma Scale Eye Opening: Spontaneous Jet Coma Scale Verbal: Oriented Adel Coma Scale Motor: Obeys Commands Jet Coma Scale Total: 15 Speech: Normal Motor strength normal: LUE, RUE, LLE, RLE Sensory: Normal - Psychological Associated symptoms: Normal affect, Normal mood - Skin Skin Temperature: Warm Skin Moisture: Dry Skin Color: Normal Course - Re-evaluation Re-evalutation: 11/14/19 13:28 Patient is a 64-year-old male on Eliquis who had recent endoscopy and colonoscopy with polypectomy. Comes in with GI bleeding since last night and maroon jelly stool in the emergency department. Patient was hypotensive and tachycardic for EMS. He received 1 L of lactated Ringer's prior to arrival. Hemoglobin is stable at 15.8. Discussed with his court specialist, Dr. Hopkins, who recommends patient be admitted for serial CBCs and observation. Hold Eliquis. 11/14/19 13:30 Hospitalist contacted. 11/14/19 13:35 accepts patient for admission. Patient is agreeable to this plan. Stable at the time of admission. - Vital Signs Vital signs: Temp Pulse Resp BP Pulse Ox 98.2 F 83 14 118/76 99 11/14/19 18:22 11/14/19 14:00 11/14/19 18:00 11/14/19 18:00 11/14/19 18:00 - Laboratory Result Diagrams: 11/14/19 14:11 11/14/19 07:05 Laboratory results interpreted by me: 11/14/19 11/14/19 11/14/19 07:05 07:05 14:11 Plt Count 105 L 81 L Sodium 135.5 L Discharge - Discharge Clinical Impression: GI bleed Qualifiers: GI bleed type/associated pathology: unspecified gastrointestinal hemorrhage type Qualified Code(s): K92.2 - Gastrointestinal hemorrhage, unspecified Condition: Stable Disposition: ADMITTED INPATIENT Admitting Provider: Kailey (Hospitalist) Unit Admitted: Telemetry I personally performed the services described in the documentation, reviewed and edited the documentation which was dictated to the scribe in my presence, and it accurately records my words and actions.
[2019-11-14] MEDS ORDERED: MESALAMINE 400 MG CAPSULE.DR PO ONE (21:00)
[2019-11-14] MEDS: ATORVASTATIN CALCIUM 40 MG TABLET PO SCH (22:30)
[2019-11-15] MEDS: NORMAL SALINE 1000 ML 1,000 ML IV PRN ×2 (03:11→11:57)
[2019-11-15] MEDS: PANTOPRAZOLE SODIUM 40 MG VIAL IV SCH ×2 (05:43→17:38)
[2019-11-15 06:06] LABS: ABSOLUTE LYMPHOCYTES (AUTO) 1.6 10^3/uL (0.5-4.7); ABSOLUTE MONOCYTES (AUTO) 0.3 10^3/uL (0.1-1.4); ABSOLUTE NEUT (AUTO) 3.7 10^3/uL (1.7-8.2); BASOPHILS % (AUTO) 0.1 % (0-2); EOSINOPHILS % (AUTO) 0.7 % (0-6); HEMATOCRIT 38.8 % (37.9-51.0); HEMOGLOBIN 13.4 g/dL (13.5-17.0); LYMPHOCYTES % (AUTO) 27.9 % (13-45); MEAN CORPUSCULAR HEMOGLOBIN 31.3 pg (27.0-33.4); MEAN CORPUSCULAR HGB CONC 34.6 g/dL (32.0-36.0); MEAN CORPUSCULAR VOLUME 91 fl (80-97); MONOCYTES % (AUTO) 5.8 % (3-13); RED BLOOD COUNT 4.29 10^6/uL (4.35-5.55); RED CELL DISTRIBUTION WIDTH 13.6 % (11.5-14.0); SEGMENTED NEUTROPHILS % (AUTO) 65.5 % (42-78); TOTAL CELLS COUNTED % (AUTO) 100 %; WHITE BLOOD COUNT 5.6 10^3/uL (4.0-10.5)
[2019-11-15 06:28] LABS: BLOOD UREA NITROGEN 11 mg/dL (7-20); CALCIUM 7.9 mg/dL (8.4-10.2); GLUCOSE 74 mg/dL (75-110); POTASSIUM 3.9 mmol/L (3.6-5.0)
[2019-11-15 06:33] LABS: CARBON DIOXIDE 26 mmol/L (22-30); CHLORIDE 106 mmol/L (98-107)
[2019-11-15 06:35] LABS: PLATELET COUNT 76 10^3/uL (150-450)
[2019-11-15 06:45] LABS: ANION GAP 3 (5-19)
[2019-11-15] MEDS ORDERED: PEG 3350/NA SULF,BICARB,CL/KCL 4000 ML PO ONE (09:18)
[2019-11-15] MEDS ORDERED: PREDNISONE 20 MG TABLET PO ONE (09:20)
--- NOTE | 2019-11-15 09:34 | PDOC CONSULTATION ---
Consultation Consult Date: 11/15/19 Provider Consulted: MINA ACOSTA History of Present Illness Admission Date/PCP: 11/14/19 14:22 SANDIE BLANCHARD MD History of Present Illness: MAGGIE LUCIA is a 64 year old male who was admitted on 11/14/2019 with rectal bleeding. He started bleeding the day before admission and had 2 episodes at home. In the emergency room he had dark maroon-colored stool with a hemoglobin of 15. This morning his hemoglobin was 13.4. He had a colonoscopy on 11/10/2019 with removal of 2 polyps from the ascending colon by polypectomy. He resumed his Eliquis at 2.5 mg daily and only took 1 dose before the bleeding started. He has also been on baby aspirin. He has ITP and has been on 60 mg of prednisone for the last few weeks. His admission hemoglobin was 105 and this morning it is 76. He denies abdominal pain. He started bleeding again last night and has been passing dark red blood almost every hour or through the night. His vital signs are stable. Past Medical History Cardiac Medical History: Reports: Atrial Fibrillation, Coronary Artery Disease, Hyperlipidema, Hypertension Pulmonary Medical History: Reports: Bronchitis, Pneumonia Denies: Tuberculosis Psychiatric Medical History: Reports: Depression - gen anxiety disorder Hematology: Denies: Anemia Past Surgical History Past Surgical History: Reports: Cholecystectomy, Vascular Surgery - stent neck Social History Smoking Status: Former Smoker Electronic Cigarette use?: No Last Time Smoked: 11/14/1989 Frequency of Alcohol Use: Occasional Hx Recreational Drug Use: No Drugs: None Hx Prescription Drug Abuse: No - Advance Directive Resuscitation Status: Full Code Family History Family History: Reviewed & Not Pertinent Parental Family History Reviewed: No Children Family History Reviewed: NA Sibling(s) Family History Reviewed.: NA Medication/Allergy Home Medications: Alfuzosin HCl [Alfuzosin HCl ER] 10 mg PO DAILY 11/14/19 Apixaban [Eliquis 2.5 mg Tablet] 2.5 mg PO DAILY 11/14/19 Aspirin [Adult Aspirin Regimen] 81 mg PO DAILY 11/14/19 Atorvastatin Calcium [Lipitor 40 mg Tablet] 40 mg PO QHS 11/14/19 Buspirone HCl [Buspar 10 mg Tablet] 10 mg PO TID 11/14/19 Finasteride [Proscar 5 mg Tablet] 5 mg PO DAILY 11/14/19 Losartan Potassium [Cozaar 100 mg Tablet] 100 mg PO DAILY 11/14/19 Omeprazole 20 mg PO DAILY 11/14/19 Allergies/Adverse Reactions: cefuroxime axetil [From Ceftin] Allergy (Intermediate, Verified 10/27/19 08:41) Review of Systems All systems: reviewed and no additional remarkable complaints except as stated Physical Exam Vital Signs: Temp Pulse Resp BP Pulse Ox 98.3 F 78 16 137/73 H 99 11/14/19 23:20 11/15/19 07:57 11/15/19 07:57 11/15/19 07:57 11/15/19 07:57 Intake & Output 11/14/19 11/15/19 11/16/19 06:59 06:59 06:59 Intake Total 2127 Output Total 1000 Balance 1127 Weight 101.4 kg Exam: General: Patient is alert and looks well. HEENT: There is no pallor or jaundice. PERRLA. Oropharynx normal Respiratory: No chest deformity. No respiratory distress. Chest wall palpitation was unremarkable. Breath sounds were normal Cardiovascular: Heart sounds 1 and 2 normal with no murmurs. Abdominal: Not distended. Soft and nontender. Liver and spleen not palpable. No ascites demonstrated. Bowel sounds active. Rectal examination was deferred. Extremities: No edema Neurological: Alert and oriented x4. Grossly nonfocal. Normal speech Skin: No significant rash Psychological: Normal affect Results Laboratory Results: 11/15/19 05:09 11/15/19 05:09 11/14/19 11/14/19 11/15/19 09:39 14:11 05:09 WBC 6.9 5.6 RBC 4.73 4.29 L Hgb 14.6 13.4 L Hct 42.8 38.8 MCV 90 91 MCH 30.8 31.3 MCHC 34.0 34.6 RDW 13.3 13.6 Plt Count 81 L 76 L Seg Neutrophils % 65.5 Sodium Potassium Chloride Carbon Dioxide Anion Gap BUN Creatinine Est GFR ( Amer) Glucose Calcium Blood Type O POSITIVE Antibody Screen NEGATIVE 11/15/19 05:09 WBC RBC Hgb Hct MCV MCH MCHC RDW Plt Count Seg Neutrophils % Sodium 134.8 L Potassium 3.9 Chloride 106 Carbon Dioxide 26 Anion Gap 3 L BUN 11 Creatinine 1.03 Est GFR ( Amer) > 60 Glucose 74 L Calcium 7.9 L Blood Type Antibody Screen Assessment & Plan - Diagnosis (1) Post-polypectomy bleeding Is this a current diagnosis for this admission?: Yes Plan: He is bleeding from the polypectomy sites in his ascending colon. He is still having some dark red blood though with relatively good hemoglobin and vital signs. He will have an urgent bowel prep this morning followed by colonoscopy. His Eliquis will be held for at least a week and then resume at 2.5 every other day for another week prior to going back to his usual dose of 1 a day. (2) Chronic ITP (idiopathic thrombocytopenia) Is this a current diagnosis for this admission?: Yes (3) Chronic atrial fibrillation Is this a current diagnosis for this admission?: Yes (4) Lower GI bleed Is this a current diagnosis for this admission?: Yes
[2019-11-15] MEDS: LOSARTAN POTASSIUM 50 MG TABLET PO SCH (09:42)
[2019-11-15] MEDS: ASPIRIN 81 MG TABLET, ENT COATED PO SCH (09:43)
[2019-11-15] MEDS: BUSPIRONE HCL 10 MG TABLET PO SCH ×3 (09:43→17:38)
[2019-11-15] MEDS: FINASTERIDE 5 MG TABLET PO SCH (09:43)
[2019-11-15] MEDS: MESALAMINE 400 MG CAPSULE.DR PO SCH ×2 (11:56→17:37)
[2019-11-15] MEDS ORDERED: FENTANYL CITRATE INJ/PF 100 MCG/2 ML AMPUL ONE (12:05)
[2019-11-15] MEDS ORDERED: ONDANSETRON HCL INJ/PF 4 MG/2 ML SDV ONE (12:05)
[2019-11-15] MEDS ORDERED: GLUCAGON,HUMAN RECOMB 1 MG INJ ONE (12:05)
[2019-11-15] MEDS ORDERED: NALOXONE HCL INJ/PF 0.4 MG/1 ML SDV ONE (12:05)
[2019-11-15] MEDS ORDERED: EPINEPHRINE INJ 1 MG/10 ML DISP.SYRIN ONE (12:05)
[2019-11-15] MEDS ORDERED: FLUMAZENIL INJ 0.5 MG/5 ML VIAL ONE (12:05)
[2019-11-15] MEDS ORDERED: DIPHENHYDRAMINE HCL 50 MG/ML VIAL ONE (12:05)
[2019-11-15] MEDS: MIDAZOLAM 2 MG/2 ML INJ ONE ×2 (13:35→13:46)
[2019-11-15] MEDS ORDERED: PREDNISONE 20 MG TABLET PO SCH (14:00)
--- NOTE | 2019-11-15 14:19 | Operative Report ---
Operative Report DATE OF SURGERY: 11/15/19 Operative Report: Pre-op diagnosis: Post polypectomy rectal bleeding Post-op diagnosis: #1 Ascending colon ulcer with fresh clot Surgery: Colonoscopy with epinephrine injection and Endo Clip placement Medications: Versed 4mg, Fentanyl 100 Mcg IV push Tissue removed: None Procedure: After informed consent obtained from patient, conscious sedation was achieved. A digital rectal examination was performed and this was unremarkable. The colonoscope was inserted into the rectum and advanced to the cecum. The appendiceal orifice and the terminal ileum were both identified. The mucosa was examined into details as the colonoscope was slowly pulled out of the patient. The endoscope was retroflexed in the rectum. Patient tolerated the procedure well. Findings Cecum: Normal Ascending colon: A 6 mm ulcer with a fresh clot was identified in the mid ascending colon. There was no active bleeding. The base was injected with epinephrine 1 in 10,003 endoclips were placed. Another ulcer was noted in the same area with no evidence for recent bleeding. The base of this ulcer was also injected with epinephrine and 1 clip was applied. Transverse colon: Normal Descending colon: Normal Sigmoid colon: Normal Rectum: Normal except for internal hemorrhoids Plan: Follow CBC and continue mesalamine for 1 month. He can be discharged home tomorrow if there is no evidence for active bleeding. Hold Eliquis for 1 week and then resume with 2.5 mg every other day for another week. He can resume his 2.5 mg daily dose thereafter OPERATION: .
[2019-11-15 15:18] LABS: HEMATOCRIT 38.6 % (37.9-51.0); HEMOGLOBIN 13.4 g/dL (13.5-17.0); MEAN CORPUSCULAR HEMOGLOBIN 31.4 pg (27.0-33.4); MEAN CORPUSCULAR HGB CONC 34.8 g/dL (32.0-36.0); MEAN CORPUSCULAR VOLUME 91 fl (80-97); RED BLOOD COUNT 4.27 10^6/uL (4.35-5.55); RED CELL DISTRIBUTION WIDTH 13.7 % (11.5-14.0); WHITE BLOOD COUNT 6.8 10^3/uL (4.0-10.5)
[2019-11-15 15:38] LABS: PLATELET COUNT 76 10^3/uL (150-450)
--- NOTE | 2019-11-15 16:06 | PDOC PROGRESS REPORT ---
Subjective Progress Note for:: 11/15/19 Subjective:: Patient had several episodes of recurrent hematochezia overnight. Endorses lightheadedness this morning. Taken to the endoscopy suite today for colonoscopy. Reason For Visit: LOWER GI BLEED, ORTHOSTASIS Physical Exam Vital Signs: Temp Pulse Resp BP Pulse Ox 97.6 F 78 18 132/58 H 99 11/15/19 11:43 11/15/19 14:20 11/15/19 14:20 11/15/19 14:20 11/15/19 14:20 Intake & Output 11/14/19 11/15/19 11/16/19 06:59 06:59 06:59 Intake Total 2127 1177 Output Total 1000 300 Balance 1127 877 Weight 101.4 kg General appearance: PRESENT: no acute distress, cooperative Neck exam: ABSENT: JVD Respiratory exam: PRESENT: clear to auscultation lucia, symmetrical, unlabored. ABSENT: tachypnea, wheezes Cardiovascular exam: PRESENT: RRR, +S1, +S2. ABSENT: tachycardia GI/Abdominal exam: PRESENT: normal bowel sounds, soft. ABSENT: rebound, rigid, tenderness Neurological exam: PRESENT: alert, awake, oriented to person, oriented to place, oriented to time, oriented to situation Results Laboratory Results: 11/15/19 14:59 11/15/19 05:09 11/15/19 11/15/19 11/15/19 05:09 05:09 14:59 WBC 5.6 6.8 RBC 4.29 L 4.27 L Hgb 13.4 L 13.4 L Hct 38.8 38.6 MCV 91 91 MCH 31.3 31.4 MCHC 34.6 34.8 RDW 13.6 13.7 Plt Count 76 L 76 L Seg Neutrophils % 65.5 Sodium 134.8 L Potassium 3.9 Chloride 106 Carbon Dioxide 26 Anion Gap 3 L BUN 11 Creatinine 1.03 Est GFR ( Amer) > 60 Glucose 74 L Calcium 7.9 L Assessment and Plan - Diagnosis (1) Lower GI bleed Is this a current diagnosis for this admission?: Yes Plan: Secondary to 2 colonic ulcers noted on urgent colonoscopy performed today 1 of which showed fresh blood clots and epinephrine injection with endoclips were placed. H&H this afternoon is stable Check CBC in a.m. if stable will discharge tomorrow. Outpatient follow-up with Dr. Hopkins (2) Colonic ulcer Is this a current diagnosis for this admission?: Yes Plan: As above (3) Orthostatic hypotension Is this a current diagnosis for this admission?: Yes Plan: Orthostatic vital signs are positive again this morning IV fluids Bleeding source controlled. Will check vitals again tomorrow morning. (4) Chronic atrial fibrillation Is this a current diagnosis for this admission?: Yes Plan: Given recent significant lower GI bleed, will abide by Dr Hopkins's recommendations to hold Eliquis for a week and then restart at 2.5 mg every othe r day for another week before going back to patient's regular home dose. (5) History of coronary artery disease Is this a current diagnosis for this admission?: Yes Plan: Continue ASA (6) Chronic ITP (idiopathic thrombocytopenia) Is this a current diagnosis for this admission?: Yes Plan: Continue home regimen of prednisone 40 mg in the morning and 20 mg in the evening. (7) H. pylori duodenitis Is this a current diagnosis for this admission?: Yes Plan: Continue PPI. Outpatient follow-up. - Time Time Spent with patient: Less than 15 minutes
[2019-11-15] MEDS: ATORVASTATIN CALCIUM 40 MG TABLET PO SCH (21:23)
[2019-11-16] MEDS: PANTOPRAZOLE SODIUM 40 MG VIAL IV SCH ×2 (05:23→17:44)
[2019-11-16] MEDS: NORMAL SALINE 1000 ML 1,000 ML IV PRN (05:24)
[2019-11-16 06:17] LABS: ABSOLUTE EOSINOPHILS # (AUTO) 0.1 10^3/uL (0.0-0.6); ABSOLUTE LYMPHOCYTES (AUTO) 1.6 10^3/uL (0.5-4.7); ABSOLUTE MONOCYTES (AUTO) 0.4 10^3/uL (0.1-1.4); ABSOLUTE NEUT (AUTO) 4.5 10^3/uL (1.7-8.2); BASOPHILS % (AUTO) 0.1 % (0-2); EOSINOPHILS % (AUTO) 1.2 % (0-6); HEMATOCRIT 36.4 % (37.9-51.0); HEMOGLOBIN 12.6 g/dL (13.5-17.0); MEAN CORPUSCULAR HEMOGLOBIN 30.9 pg (27.0-33.4); MEAN CORPUSCULAR HGB CONC 34.6 g/dL (32.0-36.0); MEAN CORPUSCULAR VOLUME 89 fl (80-97); RED BLOOD COUNT 4.08 10^6/uL (4.35-5.55); RED CELL DISTRIBUTION WIDTH 13.5 % (11.5-14.0); SEGMENTED NEUTROPHILS % (AUTO) 68.7 % (42-78); TOTAL CELLS COUNTED % (AUTO) 100 %; WHITE BLOOD COUNT 6.6 10^3/uL (4.0-10.5)
[2019-11-16 06:53] LABS: PLATELET COUNT 85 10^3/uL (150-450)
[2019-11-16] MEDS ORDERED: PREDNISONE 20 MG TABLET PO SCH ×2 (10:00→18:00)
[2019-11-16] MEDS: LOSARTAN POTASSIUM 50 MG TABLET PO SCH (10:43)
[2019-11-16] MEDS: ASPIRIN 81 MG TABLET, ENT COATED PO SCH (10:43)
[2019-11-16] MEDS: BUSPIRONE HCL 10 MG TABLET PO SCH ×3 (10:43→19:41)
[2019-11-16] MEDS: FINASTERIDE 5 MG TABLET PO SCH (10:43)
[2019-11-16] MEDS: MESALAMINE 400 MG CAPSULE.DR PO SCH ×2 (10:46→19:40)
[2019-11-16 15:59] LABS: HEMATOCRIT 41.8 % (37.9-51.0); HEMOGLOBIN 14.3 g/dL (13.5-17.0); MEAN CORPUSCULAR HEMOGLOBIN 30.8 pg (27.0-33.4); MEAN CORPUSCULAR HGB CONC 34.2 g/dL (32.0-36.0); MEAN CORPUSCULAR VOLUME 90 fl (80-97); PLATELET COUNT 101 10^3/uL (150-450); RED BLOOD COUNT 4.65 10^6/uL (4.35-5.55); RED CELL DISTRIBUTION WIDTH 13.6 % (11.5-14.0); WHITE BLOOD COUNT 9.8 10^3/uL (4.0-10.5)
--- NOTE | 2019-11-16 17:24 | PDOC DISCHARGE SUMMARY ---
Impression - Admit/DC Date/PCP Admission Date/Primary Care Provider: 11/14/19 14:22 SANDIE BLANCHARD MD Discharge Date: 11/16/19 - Discharge Diagnosis (1) Lower GI bleed Is this a current diagnosis for this admission?: Yes (2) Colonic ulcer Is this a current diagnosis for this admission?: Yes (3) Orthostatic hypotension Is this a current diagnosis for this admission?: Yes (4) Chronic atrial fibrillation Is this a current diagnosis for this admission?: Yes (5) History of coronary artery disease Is this a current diagnosis for this admission?: Yes (6) Chronic ITP (idiopathic thrombocytopenia) Is this a current diagnosis for this admission?: Yes (7) H. pylori duodenitis Is this a current diagnosis for this admission?: Yes - Assessment Summary: Patient was admitted after complaining of several episodes of hematochezia. Upon presentation, he was initially noted to be a little bit hypotensive and lightheaded but responded nicely to fluid resuscitation. Orthostatic vital signs were positive. Patient was continued on IV fluids. Patient began to have multiple episodes with several large bloody bowel movements with recurrence of lightheadedness and drop in his hemoglobin level. He subsequently underwent emergent colonoscopy by Dr. Acosta with rapid bowel prep. The colonoscopy showed: Cecum: Normal Ascending colon: A 6 mm ulcer with a fresh clot was identified in the mid ascending colon. There was no active bleeding. The base was injected with epinephrine 1 in 10,003 endoclips were placed. Another ulcer was noted in the same area with no evidence for recent bleeding. The base of this ulcer was also injected with epinephrine and 1 clip was applied. Transverse colon: Normal Descending colon: Normal Sigmoid colon: Normal Rectum: Normal except for internal hemorrhoids Following the procedure, there was no recurrence of bloody bowel movements and patient's hemoglobin stayed stable. Vital signs have been normal since then patient has ambulated sufficiently without any dizziness or lightheadedness in the process. Patient was placed on mesalamine twice a day for [address] Acosta recommended that patient stay off the Eliquis for at least 1 week after which his Eliquis can be restarted at 2.5 mg twice a day report every other day for another week before going back to his regular home dose. Patient has been discharged in stable conditions with adequate follow-ups for his primary care provider and Dr. Acosta. - Additional Information Resuscitation Status: Full Code Discharge Diet: As Tolerated Discharge Activity: Activity As Tolerated Referrals: MINA ACOSTA MD [ACTIVE STAFF] - SANDIE BLANCHARD MD [Primary Care Provider] - Follow up as needed Prescriptions: Mesalamine [Asacol Sr 400 mg Capsule] 800 mg PO BID 30 Days capsule.dr Costelol Medications: Alfuzosin HCl [Alfuzosin HCl ER] 10 mg PO DAILY 11/14/19 Apixaban [Eliquis 2.5 mg Tablet] 2.5 mg PO DAILY 11/14/19 Aspirin [Adult Aspirin Regimen] 81 mg PO DAILY 11/14/19 Atorvastatin Calcium [Lipitor 40 mg Tablet] 40 mg PO QHS 11/14/19 Buspirone HCl [Buspar 10 mg Tablet] 10 mg PO TID 11/14/19 Finasteride [Proscar 5 mg Tablet] 5 mg PO DAILY 11/14/19 Losartan Potassium [Cozaar 100 mg Tablet] 100 mg PO DAILY 11/14/19 Omeprazole 20 mg PO DAILY 11/14/19 Mesalamine [Asacol Sr 400 mg Capsule] 800 mg PO BID 30 Days capsule. 11/16/19 Prednisone [Deltasone 20 mg Tablet] 20 mg PO QPM tablet 11/16/19 Prednisone [Deltasone 20 mg Tablet] 40 mg PO DAILY tablet 11/16/19 History of Present Illiness History of Present Illness: MAGGIE LUCIA is a 64 year old male with history of ITP, hypertension, CAD, carotid stenosis status post endarterectomy, atrial fibrillation on Eliquis, who presents to the hospital with complaints of hematochezia which started last night. Today patient has had 4 episodes of hematochezia. He had an episode at 4 AM and 6 AM prompting him to call the EMS. Patient notes dark red blood being mixed with stool in the bowl. Endorses weakness for the past 2 days. Endorses mild abdominal pain. Denies any nausea or vomiting. Denies any hematemesis. Denies melena. On arrival of EMS, his blood pressure was noted to be 98/67 with a heart rate of 123. Patient received 1 L of lactated Ringer's in the field with improvement of his blood pressure and heart rate. Of note, patient recently had upper and lower endoscopies done on 11/[address] Acosta in his office which showed gastritis with duodenitis as well as polyps in the colon and hemorrhoids. Uncertain if polypectomy was done. Patient denies any bloody stools prior to the colonoscopy. ER contacted Dr. Acosta who would like patient to be admitted for monitoring. Patient also endorsed that he had been diagnosed with H. pylori infection and was placed on antibiotic with PPI treatment in the outpatient setting. Physical Exam Vital Signs: Temp Pulse Resp BP Pulse Ox 98.5 F 90 16 109/67 99 11/16/19 12:00 11/16/19 12:00 11/16/19 12:00 11/16/19 12:00 11/16/19 12:00 Intake & Output 11/15/19 11/16/19 11/17/19 06:59 06:59 06:59 Intake Total 2127 2417 Output Total 1000 2024 Balance 1127 392 Weight 101.4 kg 101.4 kg General appearance: PRESENT: no acute distress Neck exam: ABSENT: JVD Respiratory exam: PRESENT: clear to auscultation lucia Vascular exam: ABSENT: pallor Results Laboratory Results: WBC 9.8 10^3/uL (4.0-10.5) 11/16/19 15:41 RBC 4.65 10^6/uL (4.35-5.55) 11/16/19 15:41 Hgb 14.3 g/dL (13.5-17.0) 11/16/19 15:41 Hct 41.8 % (37.9-51.0) 11/16/19 15:41 MCV 90 fl (80-97) 11/16/19 15:41 MCH 30.8 pg (27.0-33.4) 11/16/19 15:41 MCHC 34.2 g/dL (32.0-36.0) 11/16/19 15:41 RDW 13.6 % (11.5-14.0) 11/16/19 15:41 Plt Count 101 10^3/uL (150-450) L 11/16/19 15:41 Lymph % (Auto) 24.0 % (13-45) 11/16/19 05:42 [place] % (Auto) 6.0 % (3-13) 11/16/19 05:42 Eos % (Auto) 1.2 % (0-6) 11/16/19 05:42 Baso % (Auto) 0.1 % (0-2) 11/16/19 05:42 Absolute Neuts (auto) 4.5 10^3/uL (1.7-8.2) 11/16/19 05:42 Absolute Lymphs (auto) 1.6 10^3/uL (0.5-4.7) 11/16/19 05:42 Absolute Monos (auto) 0.4 10^3/uL (0.1-1.4) 11/16/19 05:42 Absolute Eos (auto) 0.1 10^3/uL (0.0-0.6) 11/16/19 05:42 Absolute Basos (auto) 0.0 10^3/uL (0.0-0.2) 11/16/19 05:42 Seg Neutrophils % 68.7 % (42-78) 11/16/19 05:42 PT 12.9 SEC (11.4-15.4) 11/14/19 07:05 INR 0.97 11/14/19 07:05 APTT 24.5 SEC (23.5-35.8) 11/14/19 07:05 Sodium 134.8 mmol/L (137-145) L 11/15/19 05:09 Potassium 3.9 mmol/L (3.6-5.0) 11/15/19 05:09 Chloride 106 mmol/L (98-107) 11/15/19 05:09 Carbon Dioxide 26 mmol/L (22-30) 11/15/19 05:09 Anion Gap 3 (5-19) L 11/15/19 05:09 BUN 11 mg/dL (7-20) 11/15/19 05:09 Creatinine 1.03 mg/dL (0.52-1.25) 11/15/19 05:09 Est GFR ( Amer) > 60 (>60) 11/15/19 05:09 Est GFR (MDRD) Non-Af > 60 (>60) 11/15/19 05:09 Glucose 74 mg/dL (75-110) L 11/15/19 05:09 Calcium 7.9 mg/dL (8.4-10.2) L 11/15/19 05:09 Total Bilirubin 1.2 mg/dL (0.2-1.3) 11/14/19 07:05 Direct Bilirubin 0.3 mg/dL (0.0-0.4) 11/14/19 07:05 Neonat Total Bilirubin Not Reportable 11/14/19 07:05 Neonat Direct Bilirubin Not Reportable 11/14/19 07:05 Neonat Indirect Bili Not Reportable 11/14/19 07:05 AST 34 U/L (17-59) 11/14/19 07:05 ALT 62 U/L (<50) 11/14/19 07:05 Alkaline Phosphatase 48 U/L (38-126) 11/14/19 07:05 Total Protein 6.5 g/dL (6.3-8.2) 11/14/19 07:05 Albumin 3.8 g/dL (3.5-5.0) 11/14/19 07:05 POC Stool Occult Blood POSITIVE (NEGATIVE) 11/14/19 09:25 Blood Type O POSITIVE 11/14/19 09:39 Antibody Screen NEGATIVE 11/14/19 09:39 Plan Time Spent: Less than 30 Minutes Stroke Is this a Stroke Patient?: No Acute Heart Failure - Is this a Heart Failure Patient?: No
[2019-11-16 18:30] VITALS: BP 109/67
== END 2019-11-16 18:45 | disposition home or self-care (01) | DRG 920 ==
LOC: ER 07:25 → EH 14:22 → 4N 18:55
PROVIDERS: ADMIT Internal Medicine; ATTEND Internal Medicine
PROC: 0W3P8ZZ Control Bleeding in Gastrointestinal Tract, Via Natural or Artificial Opening Endoscopic (ICD-10-PCS; principal; 2019-11-15 13:00)
DX: K91.840 Postprocedural hemorrhage of a digestive system organ or structure following a digestive system procedure (principal); K63.3 Ulcer of intestine; K92.1 Melena; D69.3 Immune thrombocytopenic purpura; I48.20 Chronic atrial fibrillation, unspecified; Y84.8 Other medical procedures as the cause of abnormal reaction of the patient, or of later complication, without mention of misadventure at the time of the procedure; Y73.8 Miscellaneous gastroenterology and urology devices associated with adverse incidents, not elsewhere classified; K29.80 Duodenitis without bleeding; B96.81 Helicobacter pylori [H. pylori] as the cause of diseases classified elsewhere; I95.1 Orthostatic hypotension; I10 Essential (primary) hypertension; I25.10 Atherosclerotic heart disease of native coronary artery without angina pectoris; K64.8 Other hemorrhoids; E87.5 Hyperkalemia; F32.9 Major depressive disorder, single episode, unspecified; F41.1 Generalized anxiety disorder; Z79.01 Long term (current) use of anticoagulants; Z90.49 Acquired absence of other specified parts of digestive tract; Z87.891 Personal history of nicotine dependence; Z79.82 Long term (current) use of aspirin; Z79.899 Other long term (current) drug therapy; Z86.010 Personal history of colon polyps
CPT/HCPCS: 36415; 45381; 45382; 80048; 80053; 85025; 85610; 85730; 86850; 86900; 86901; 96360; 99284; C9113; J0171; J1200; J1610; J2250; J2310; J2405; J3010; J3490; J7030; J7512

== ENCOUNTER → 2019-12-28 | Outpatient (CLI) | payer MEDICARE, MEDICAID ==
--- NOTE | 2019-12-28 17:12 | RADIOLOGY REPORT (SQ) ---
EXAM DESCRIPTION: NM GASTRIC EMPTYING STUDY COMPLETED DATE/TIME: 12/28/2019 2:45 pm REASON FOR STUDY: NAUSEA (R11.0), LUQ PAIN (R10.12) R11.0 NAUSEA COMPARISON: None. RADIONUCLIDE AND DOSE: 2 millicuries Tc-99m Sulfur Colloid. A wide variety of solid foods have been used. The route of agent administration: Oral. TECHNIQUE: 1 minute serial static imaging performed at time of meal, 1 hour, 2 hours, 3 hours, and 4 hours as needed. Once stomach reaches 90% emptying, the test is complete. Image intensity values pl otted with respect to time with linear regression algorithm. LIMITATIONS: None. FINDINGS: Patient was observed for 4 hours. Immediate post meal serves as baseline. Gastric emptying at 30 minutes was 31.2%. Gastric emptying at 60 minutes was 52.6% Gastric emptying at 90 minutes was 67.4%. Gastric emptying at 120 minutes was 77.3%. Gastric emptying at 240 minutes was 95%. Normal values: 60 minutes: 30-90% retained. If less than 30%, abnormally rapid emptying. If greater than 90%, delaye d gastric emptying. 120 minutes: <60% retained. If greater than 60%, delayed gastric emptying. 240 minutes: <10% retained. If greater than 10%, delayed gastric emptying. IMPRESSION: NORMAL GASTRIC EMPTYING. TECHNICAL DOCUMENTATION: JOB ID: [id number] 2010 [employer]- All Rights Reserved rev-03/28 Reading location - IP/workstation name: [email or web address]
== END ==
LOC: RAD 08:29
PROVIDERS: ATTEND Internal Medicine Gastroenterology
DX: R11.0 Nausea (principal); R10.12 Left upper quadrant pain
CPT/HCPCS: 78264; A9541

== ENCOUNTER 2020-01-06 09:09 | Emergency (ER) | payer MEDICARE, MEDICAID ==
--- NOTE | 2020-01-06 10:59 | ER Document Report ---
ED Medical Screen (RME) - General Chief Complaint: Abdominal Pain >50 Stated Complaint: ABDOMINAL PAIN,NAUSEA Time Seen by Provider: 01/06/20 10:46 Primary Care Provider: SANDIE BLANCHARD MD [Primary Care Provider] - Follow up as needed Notes: Patient is a 64-year-old male who presents emergency department with a chief complaint of abdominal pain. Patient reports he does have a history of IBS and has been battling chronic lower abdominal pain since July 2019. Patient reports he had an outpatient gastric emptying test performed on December 28 that was ordered by Dr. Simmons and was told that this was normal. Patient reports last night after taking venlafaxine 25 mg he began to experience more abdominal pain. Patient reports that sharp in nature and at times stabbing. Patient reports he is on Eliquis that he takes every other day for "stroke. "Patient reports that he did have a bowel movement that was constipated last night without blood. Patient has a known history of GI bleed with ulcers. Pat ient reports no current blood. Patient denies urinary symptoms. TRAVEL OUTSIDE OF THE [place] IN LAST 30 DAYS: No - Related Data Allergies/Adverse Reactions: cefuroxime axetil [From Ceftin] Allergy (Intermediate, Verified 01/06/20 10:45) Home Medications: [employer] Past Medical History - Social History Chew tobacco use (# tins/day): No Frequency of alcohol use: None Drug Abuse: None - Past Medical History Cardiac Medical History: Reports: Hx Atrial Fibrillation, Hx Coronary Artery Disease, Hx Hypercholesterolemia, Hx Hypertension Pulmonary Medical History: Reports: Hx Bronchitis, Hx Pneumonia Denies: Hx Tuberculosis Neurological Medical History: Denies: Hx Seizures Renal/ Medical History: Denies: Hx Peritoneal Dialysis Psychiatric Medical History: Reports: Hx Depression - gen anxiety disorder Traumatic Medical History: Reports: Hx Fractures - skull 7 y/o Past Surgical History: Reports: Hx Cardiac Surgery - 2009,09/10/16, Hx Cholecystectomy, Hx Vascular Surgery - stent neck - Immunizations Hx Diphtheria, Pertussis, Tetanus Vaccination: Yes Physical Exam - Vital signs Vitals: Temp Pulse Resp BP Pulse Ox 95.7 F L 81 20 138/82 H 96 01/06/20 09:17 01/06/20 09:17 01/06/20 09:17 01/06/20 09:17 01/06/20 09:17 - Abdominal Inspection: Normal Distension: No distension Bowel sounds: Normal Tenderness: Nontender Organomegaly: No organomegaly Course - Re-evaluation Re-evalutation: 01/06/20 10:58 Patient sitting upright in triage in no acute distress. Will obtain basic labs, and abdominal x-ray to rule out free air and constipation to start. Patient will require a thorough abdominal exam once placed in a private room as this is limited while sitting upright in triage. I have greeted and performed a rapid initial assessment of this patient. A comprehensive ED assessment and evaluation of the patient, analysis of test results and completion of the medical decision making process will be conducted by additional ED providers. - Vital Signs Vital signs: Temp Pulse Resp BP Pulse Ox 95.7 F L 81 20 138/82 H 96 01/06/20 09:17 01/06/20 09:17 01/06/20 09:17 01/06/20 09:17 01/06/20 09:17 Doctor's Discharge - Discharge Referrals: SANDIE BLANCHARD MD [Primary Care Provider] - Follow up as needed
--- NOTE | 2020-01-06 11:27 | RADIOLOGY REPORT (SQ) ---
EXAM DESCRIPTION: ACUTE ABDOMEN SERIES COMPLETED DATE/TIME: 01/06/2020 11:11 am REASON FOR STUDY: lower abdominal pain COMPARISON: 10/27/2019. NUMBER OF VIEWS: Three views. TECHNIQUE: Frontal chest, supine abdomen and upright/decubitus abdomen radiographic images acquired. LIMITATIONS: None. FINDINGS: CHEST: Lungs clear of infiltrates. FREE AIR: None. No abnormal gas collections. BOWEL GAS PATTERN: Nonobstructive pattern. No dilated loops or air fluid levels. CALCIFICATIONS: No suspicious calcifications. HARDWARE: Surgical clips in the upper abdomen. Cardiac recorder- SOFT TISSUES: No gross mass or suggestion of organomegaly. BONES: No acute fracture. Degenerative changes in the spine. Stable sclerotic lesion in the left il iac bone. No worrisome bone lesions. OTHER: No other significant finding. IMPRESSION: NO RADIOGRAPHIC EVIDENCE FOR ACUTE ABDOMINAL DISEASE. TECHNICAL DOCUMENTATION: JOB ID: [id number] 2010 [employer]- All Rights Reserved Reading location - IP/workstation name: [email or web address]
[2020-01-06 12:00] LABS: ABSOLUTE EOSINOPHILS # (AUTO) 0.1 10^3/uL (0.0-0.6); ABSOLUTE LYMPHOCYTES (AUTO) 1.1 10^3/uL (0.5-4.7); ABSOLUTE MONOCYTES (AUTO) 0.5 10^3/uL (0.1-1.4); ABSOLUTE NEUT (AUTO) 4.5 10^3/uL (1.7-8.2); BASOPHILS % (AUTO) 0.7 % (0-2); EOSINOPHILS % (AUTO) 1.4 % (0-6); HEMATOCRIT 39.7 % (37.9-51.0); HEMOGLOBIN 13.7 g/dL (13.5-17.0); LYMPHOCYTES % (AUTO) 18.2 % (13-45); MEAN CORPUSCULAR HEMOGLOBIN 29.9 pg (27.0-33.4); MEAN CORPUSCULAR HGB CONC 34.5 g/dL (32.0-36.0); MEAN CORPUSCULAR VOLUME 87 fl (80-97); MONOCYTES % (AUTO) 8.2 % (3-13); PLATELET COUNT 208 10^3/uL (150-450); RED BLOOD COUNT 4.59 10^6/uL (4.35-5.55); RED CELL DISTRIBUTION WIDTH 14.9 % (11.5-14.0); SEGMENTED NEUTROPHILS % (AUTO) 71.5 % (42-78); TOTAL CELLS COUNTED % (AUTO) 100 %; WHITE BLOOD COUNT 6.3 10^3/uL (4.0-10.5)
[2020-01-06 12:19] LABS: ALKALINE PHOSPHATASE 60 U/L (38-126); ANION GAP 10 (5-19); ASPARTATE AMINO TRANSFERASE 32 U/L (17-59); BILIRUBIN,TOTAL 1.2 mg/dL (0.2-1.3); BLOOD UREA NITROGEN 7 mg/dL (7-20); CALCIUM 9.4 mg/dL (8.4-10.2); CARBON DIOXIDE 26 mmol/L (22-30); CHLORIDE 101 mmol/L (98-107); GLUCOSE 95 mg/dL (75-110); POTASSIUM 4.3 mmol/L (3.6-5.0); TOTAL PROTEIN 6.8 g/dL (6.3-8.2)
[2020-01-06 12:22] LABS: APPEARANCE,URINE CLEAR; BILIRUBIN,URINE NEGATIVE (NEGATIVE); COLOR,URINE YELLOW; GLUCOSE, URINE NEGATIVE (NEGATIVE); KETONES,URINE TRACE mg/dL (NEGATIVE); LEUKOCYTE ESTERASE,URINE NEGATIVE (NEGATIVE); NITRITE,URINE NEGATIVE (NEGATIVE); PROTEIN,URINE NEGATIVE (NEGATIVE); URINE SPECIFIC GRAVITY 1.012; UROBILINOGEN,URINE NEGATIVE mg/dL (<2.0)
--- NOTE | 2020-01-06 13:25 | ER Document Report ---
ED GI/ - General Chief Complaint: Abdominal Pain >50 Stated Complaint: ABDOMINAL PAIN,NAUSEA Time Seen by Provider: 01/06/20 10:46 Primary Care Provider: MINA ACOSTA MD [ACTIVE STAFF] - Follow up in 3-5 days SANDIE SALAZAR MD [Primary Care Provider] - Follow up in 3-5 days Mode of Arrival: Ambulatory Information source: Patient Notes: 64-year-old male presented to ED for complaint of lower abdominal pain. He has a history of IBS and GI bleed. His abdominal x-ray was completed before I saw him the only thing noted on it was a large amount of stool in the colon. He is rectal exam is negative for any blood his CBC is normal. He did have a colonoscopy in October with a cut off some polyps then he had a GI bleed after that while on Eliquis. He has had a colonoscopy since then and has had no further problems. He did go to the [facility] and they put him on venlafaxine 25 mg by mouth and he experienced increase in pain. Patient states he did have a very hard stool last night and the pain in his abdomen is sharp and stabbing. He is on Eliquis every other day for stroke. TRAVEL OUTSIDE OF THE [place] IN LAST 30 DAYS: No - HPI Patient complains to provider of: Abdominal pain Onset: Other - Abdominal pain for several days. He has been to his primary care Dr. Salazar and Dr. Cary Quality of pain: Sharp Severity at maximum: Moderate Severity in ED: Moderate Pain Level: 3 Location: Other - Bilateral lower abdomen Associated symptoms: Constipation Exacerbated by: Movement Relieved by: Denies Similar symptoms previously: Yes Recently seen / treated by doctor: Yes - Related Data Allergies/Adverse Reactions: cefuroxime axetil [From Ceftin] Allergy (Intermediate, Verified 01/06/20 10:45) Home Medications: [facility] Past Medical History - General Information source: Patient - Social History Smoking Status: Former Smoker Chew tobacco use (# tins/day): No Frequency of alcohol use: None Drug Abuse: None Family History: Reviewed & Not Pertinent Patient has suicidal ideation: No Patient has homicidal ideation: No - Past Medical History Cardiac Medical History: Reports: Hx Atrial Fibrillation, Hx Coronary Artery Disease, Hx Hypercholesterolemia, Hx Hypertension Pulmonary Medical History: Reports: Hx Bronchitis, Hx Pneumonia EENT Medical History: Reports: None Neurological Medical History: Reports: Hx Cerebrovascular Accident Endocrine Medical History: Reports: None Renal/ Medical History: Reports: None Malignancy Medical History: Reports None GI Medical History: Reports: Hx Colonoscopy, Hx Endoscopy Musculoskeletal Medical History: Reports Hx Arthritis, Reports Hx Musculoskeletal Trauma Psychiatric Medical History: Reports: Hx Anxiety, Hx Depression - gen anxiety disorder Traumatic Medical History: Reports: Hx Fractures - skull 7 y/o Infectious Medical History: Reports: None Past Surgical History: Reports: Hx Cardiac Surgery - 2009,09/10/16, Hx Cholecystectomy, Hx Vascular Surgery - stent neck - Immunizations Hx Diphtheria, Pertussis, Tetanus Vaccination: Yes Hx Pneumococcal Vaccination: 11/11/09 Review of Systems - Review of Systems Constitutional: No symptoms reported EENT: No symptoms reported Cardiovascular: No symptoms reported Respiratory: No symptoms reported Gastrointestinal: No symptoms reported, Abdominal pain, Constipation Genitourinary: No symptoms reported Male Genitourinary: No symptoms reported Musculoskeletal: No symptoms reported Skin: No symptoms reported Hematologic/Lymphatic: No symptoms reported Neurological/Psychological: No symptoms reported -: Yes All other systems reviewed and negative Physical Exam - Vital signs Vitals: Temp Pulse Resp BP Pulse Ox 95.7 F L 81 20 138/82 H 96 01/06/20 09:17 01/06/20 09:17 01/06/20 09:17 01/06/20 09:17 01/06/20 09:17 Interpretation: Normal - General General appearance: Appears well, Alert - HEENT Head: Normocephalic, Atraumatic Eyes: Normal Pupils: PERRL - Respiratory Respiratory status: No respiratory distress Chest status: Nontender Breath sounds: Normal Chest palpation: Normal - Cardiovascular Rhythm: Regular Heart sounds: Normal auscultation Murmur: No - Abdominal Inspection: Normal Distension: No distension Bowel sounds: Normal Tenderness: Tender - Lower abdominal Organomegaly: No organomegaly - Back Back: Normal, Nontender - Extremities General upper extremity: Normal inspection, Nontender, Normal color, Normal ROM, Normal temperature General lower extremity: Normal inspection, Nontender, Normal color, Normal ROM, Normal temperature, Normal weight bearing. No: Stevie's sign - Neurological Neuro grossly intact: Yes Cognition: Normal Orientation: AAOx4 [place] Coma Scale Eye Opening: Spontaneous Jet Coma Scale Verbal: Oriented Jet Coma Scale Motor: Obeys Commands Jet Coma Scale Total: 15 Speech: Normal Motor strength normal: LUE, RUE, LLE, RLE Sensory: Normal - Psychological Associated symptoms: Normal affect, Normal mood - Skin Skin Temperature: Warm Skin Moisture: Dry Skin Color: Normal Course - Re-evaluation Re-evalutation: 01/06/20 13:30 Discussed x-rays and labs with patient. Will discharge patient home with instructions for Colace and MiraLAX. Patient has been instructed to follow-up with tong and with Dr. Acosta. Patient verbalized understanding and agreement with treatment plan patient will be discharged home. - Vital Signs Vital signs: Temp Pulse Resp BP Pulse Ox 97.6 F 84 14 140/85 H 100 01/06/20 13:45 01/06/20 13:45 01/06/20 13:45 01/06/20 13:45 01/06/20 13:45 - Laboratory Result Diagrams: 01/06/20 11:51 01/06/20 11:51 Laboratory results interpreted by me: 01/06/20 01/06/20 01/06/20 11:45 11:51 11:51 RDW 14.9 H Sodium 136.9 L Urine Ketones TRACE H - Diagnostic Test Radiology reviewed: Image reviewed, Reports reviewed Discharge - Discharge Clinical Impression: Lower abdominal pain Constipation Qualifiers: Constipation type: unspecified constipation type Qualified Code(s): K59.00 - Constipation, unspecified Condition: Stable Disposition: HOME, SELF-CARE Additional Instructions: ABDOMINAL PAIN: There are many causes of abdominal pain. Pain can mean a serious problem requiring surgery (such as appendicitis). It can also be an innocent problem that goes away on its own (such as a viral infection). Often, time must pass to determine the cause of pain. The physician does not feel that hospitalization is necessary, at present. Things may change within the next 24 hours. Call the doctor or come back for re- examination if any problems occur, such as: (1) Pain that becomes more severe, steady, or becomes concentrated in one specific area. Also, pain that is more severe with movement or coughing. (2) Vomiting that persists or becomes more frequent. (3) Blood in the vomitus, urine, or bowel movements. Blood in the stool may have a tarry or black appearance. (4) Shaking chills or fever greater than 100 degrees F. (5) The abdomen becomes more distended or swollen. (6) Bowel movements cease. (7) Failure to improve as expected. NORMAL EXAM AND WORKUP: At this time, your examination and workup show no significant abnormality. No significant abnormal physical findings are noted. All laboratory, EKG, and imaging (x-ray, CT scans, ultrasound) studies that were ordered show no significant abnormality. Although your examination and all studies that were ordered showed no significant abnormal finding, there are no examinations and no studies that are 100% accurate. There is always the possibility that some abnormality could exist and not be detected with physical examination or within the limits and capabilities of laboratory and other studies. You should return or follow up as you were instructed on your visit today for further evaluation if your symptoms do not resolve. CONSTIPATION: Constipation is a common problem. It is especially likely as you get older. Constipation is a common cause of abdominal pain, but sometimes causes no symptoms at all. Causes of constipation include certain medications, dehydration, diets, inactivity, and low-fiber intake. Rarely, it can be a symptom of underlying disease. The physician has evaluated you for this. Avoid constipation by eating a diet high in fiber, fruits, and vegetables. Drink plenty of liquids. Get regular exercise. If possible, avoid constipating medicines like narcotic pain medication. Some vitamin tablets can cause constipation. Stool softeners may be needed for difficult cases. An excellent stool softener is Konsyl which is available at [employer], and [employer] drug store. Just add a teaspoon to a glass of pineapple or orange juice daily or twice a day if needed. Laxatives are useful for occasional constipation. You should use them only when necessary. Too-frequent use can make your bowels dependent on them. Some over the counter laxatives available without prescription are: Milk of Magnesia, 1-2 tablespoons twice a day Dulcolax, 5 mg pill or 10 mg suppository. Citrate of Magnesia, 4-5 ounces a day for a day or two For acute constipation, Fleet's Enemas and Dulcolax suppositories are helpful. Chronic, termination clerk use of laxatives or enemas is not a good idea. Your bowel may become dependant on them. You do not need to have a bowel movement ev adan day. Many people do fine with a bowel movement every three or four days. You should call your doctor or return for re-evaluation if you pass blood in the stool, or if you develop fever or increasing abdominal pain. BULK LAXATIVES: Bulk laxatives make the stool softer and bulkier. They're useful for preventing constipation. You can choose between psyllium, methylcellulose, and polycarbophil. They are available without a prescription. Psyllium brand names include Konsyl, Metamucil, Perdiem, Effer-Syllium and Hydrocil. It's available as powder, flavored drink powder, or chewable. The usual dose of psyllium powder is one heaping teaspoon in water each morning, increasing to twice a day if needed. Meta juice can disguise the slightly grainy texture. Methylcellulose is marketed as Citrucel and other brands. The average dose is two grams in a cup of water one to three times a day. Polycarbophil is marketed as Fiber-Con. Take two tablets with a cup of water one to three times a day. LAXATIVE: A laxative agent has been prescribed for your condition. This should result in passage of stool within 12 hours. Some mild intestinal cramping is common as the hard stool begins to move. You may have loose or runny stools for a short time. Contact your doctor if there is severe cramping, vomiting, or passage of blood. Return for further care if this medicine fails to improve your condition. As we discussed I recommend you getting some gqsj-rvq-ubgmoyl Colace taking it once a day and use the MiraLAX twice a day for the next 3 to 4 days and then once a day for the next week. Please follow-up with Dr. Acosta and Marie as we discussed. Please take a copy of the labs and x-ray with you to both of these appointments. FOLLOW-UP CARE: If you have been referred to a physician for follow-up care, call the physicians office for an appointment as you were instructed or within the next two days. If you experience worsening or a significant change in your symptoms, notify the physician immediately or return to the Emergency Department at any time for re-evaluation. Referrals: SANDIE SALAZAR MD [Primary Care Provider] - Follow up in 3-5 days MINA ACOSTA MD [ACTIVE STAFF] - Follow up in 3-5 days
[2020-01-06 13:46] VITALS: BP 140/85
== END 2020-01-06 13:47 | disposition home or self-care (01) ==
LOC: ER 09:09
DX: K59.00 Constipation, unspecified (principal); R10.30 Lower abdominal pain, unspecified; Z79.01 Long term (current) use of anticoagulants; Z86.73 Personal history of transient ischemic attack (TIA), and cerebral infarction without residual deficits; Z87.891 Personal history of nicotine dependence; I48.91 Unspecified atrial fibrillation; I25.10 Atherosclerotic heart disease of native coronary artery without angina pectoris; I10 Essential (primary) hypertension
CPT/HCPCS: 36415; 74022; 80053; 81001; 83690; 85025; 86850; 86900; 86901; 99284

== ENCOUNTER 2020-04-07 09:52 | Outpatient (CLI) | payer MEDICARE, MEDICAID ==
[~2020-04-07 09:52] MED LIST: FERRIC CARBOXYMALTOSE 750 MG in NORMAL SALINE 250 ML IV PRN; NORMAL SALINE 250 ML IV PRN
[2020-04-07 10:00] VITALS: BP 131/77
== END 2020-04-07 10:57 | disposition home or self-care (01) ==
LOC: II 09:52 → 5TH 09:55 → II 10:57
PROVIDERS: ATTEND Internal Medicine
DX: D50.8 Other iron deficiency anemias (principal); K90.9 Intestinal malabsorption, unspecified
CPT/HCPCS: 96365; J7050; J1439

== ENCOUNTER 2020-04-14 09:49 | Outpatient (CLI) | payer MEDICARE, MEDICAID ==
[2020-04-14 09:56] VITALS: BP 112/63
== END 2020-04-14 11:00 | disposition home or self-care (01) ==
LOC: II 09:49 → 5TH 09:52 → II 11:00
PROVIDERS: ATTEND Internal Medicine
DX: D50.8 Other iron deficiency anemias (principal); K90.9 Intestinal malabsorption, unspecified
CPT/HCPCS: 96365; J7050; J1439

== ENCOUNTER → 2020-05-25 | Outpatient (CLI) | payer MEDICARE, MEDICAID ==
--- NOTE | 2020-05-25 14:51 | RADIOLOGY REPORT (SQ) ---
EXAM DESCRIPTION: SMALL BOWEL SERIES IMAGES COMPLETED DATE/TIME: 05/25/2020 8:44 am REASON FOR STUDY: IRON DEFICIENCY ANEMIA (D50.9) D50.9 IRON DEFICIENCY ANEMIA, UNSPECIFIED COMPARISON: Abdominal imaging 01/06/2020 09/11/2019 CT FLUOROSCOPY TIME: 33 seconds of fluoroscopy was used. 5 images saved to PACS. LIMITATIONS: None. PROCEDURE: Initial hydraulic plumber image of abdomen acquired, followed by administration of oral contrast. Se rial radiographic images acquired. Fluoroscopic images recorded of the terminal ileum and other danica cated areas. All images stored on PACS. FINDINGS: SOFTWARE QUALITY TEST ENGINEER KUB: Non-obstructive bowel pattern. Bone island along the left SI joint, unchanged. Surgical clips in the right upper quadrant. Soft tissue planes normal. STOMACH: Mild reflux. Normal distention without abnormality. DUODENUM: Normal mucosal pattern with adequate distention. No displacement or obstruction. JEJUNUM: Normal mucosal pattern. No dilatation, segmentation, strictures or masses. ILEUM: Normal mucosal pattern. No dilatation, segmentation, strictures or masses. TERMINAL ILEUM AND ILEO-CECAL VALVE: Normal mucosal pattern without "cobble-stoning" or stricture. N ormal compression. PROXIMAL COLON: Incompletely imaged. No abnormality. OTHER: Transit time through the small bowel is normal with visualization of the colon on the 30 minut es film. IMPRESSION: NORMAL SMALL BOWEL FOLLOW-THROUGH COMMENT: Quality ID 145: Final reports for procedures using fluoroscopy that document radiation exp osure indices, or exposure time and number of fluorographic images (if radiation exposure indices are not available) TECHNICAL DOCUMENTATION: JOB ID: [id number] 2010 [email or web address]- All Rights Reserved Reading location - IP/workstation name: [email or web address]
== END ==
LOC: RAD 07:44
PROVIDERS: ATTEND Internal Medicine Gastroenterology
DX: D50.9 Iron deficiency anemia, unspecified (principal); Q43.3 Congenital malformations of intestinal fixation
CPT/HCPCS: 74250

== ENCOUNTER → 2020-12-07 | Outpatient (CLI) | payer MEDICARE, MEDICAID ==
--- NOTE | 2020-12-07 16:02 | RADIOLOGY REPORT (SQ) ---
EXAM DESCRIPTION: CT ABD/PELVIS WITH IV ORAL IMAGES COMPLETED DATE/TIME: 12/07/2020 3:14 pm REASON FOR STUDY: LEFT LOWER QUADRANT PAIN R10.32 LEFT LOWER QUADRANT PAIN COMPARISON: None. TECHNIQUE: CT scan of the abdomen and pelvis performed with intravenous and oral contrast using antionette deepthi scanning technique with dynamic intravenous contrast injection. Images reviewed with lung, soft t issue, and bone windows. Reconstructed coronal and sagittal MPR images reviewed. Delayed images for e valuation of the urinary system also acquired. All images stored on PACS. All CT scanners at this facility use dose modulation, iterative reconstruction, and/or weight based d osing when appropriate to reduce radiation dose to as low as reasonably achievable (ALARA). [facility]: Dose Right [facility]: CareDose [facility]: Dose Right [facility]: Teradose 4D [facility]: wiseri CONTRAST TYPE AND DOSE: contrast/concentration: Isovue 350.00 mmol/ml; Total Contrast Delivered: 100 .0 ml; Total Saline Delivered: 72.0 ml RENAL FUNCTION: Creatinine 1.1 RADIATION DOSE: CT Rad equipment meets quality standard of care and radiation dose reduction techniq ues were employed. CTDIvol: 17.7 - 18.7 mGy. DLP: 2007 mGy-cm. . LIMITATIONS: None. FINDINGS: LOWER CHEST: No significant findings. No nodules or infiltrates. LIVER: Normal size. No masses. No dilated ducts. SPLEEN: Normal size. No focal lesions. PANCREAS: No masses. No significant calcifications. No adjacent inflammation or peripancreatic fluid collections. Pancreatic duct not dilated. GALLBLADDER: Surgically absent. ADRENAL GLANDS: No significant masses or asymmetry. RIGHT KIDNEY AND URETER: No solid masses. No significant calcifications. No hydronephrosis or hyd roureter. LEFT KIDNEY AND URETER: No solid masses. No significant calcifications. No hydronephrosis or hydr oureter. AORTA AND VESSELS: No aneurysm. RETROPERITONEUM: No retroperitoneal adenopathy, hemorrhage or masses. BOWEL AND PERITONEAL CAVITY: No obstruction. No visualized masses. No free fluid. No inflammatory ch anges or thickening of bowel wall. APPENDIX: Normal. PELVIS: No significant masses. Normal bladder. No free fluid. ABDOMINAL WALL: Small fat containing left inguinal hernia. BONES: No significant or acute findings. OTHER: No other significant finding. IMPRESSION: No acute findings. TECHNICAL DOCUMENTATION: JOB ID: [id number] Quality ID # [id number]: Final reports with documentation of one or more dose reduction techniques (e.g., Au tomated exposure control, adjustment of the mA and/or kV according to patient size, use of iterative reconstruction technique) 2010 [employer]- All Rights Reserved Reading location - IP/workstation name: [email or web address]
== END ==
LOC: RAD 14:45
PROVIDERS: ATTEND Internal Medicine Gastroenterology
DX: R10.32 Left lower quadrant pain (principal)
CPT/HCPCS: 74177; 82565